=== PATIENT | male | born 1970 | race Caucasian/White ===

== ENCOUNTER 2018-02-27 18:10 | Emergency (ER) | payer OTHER, SELFPAY ==
[2018-02-27] VITALS (7 sets, daily range): BP systolic 107–121; BP diastolic 77–92; PULSE 88–98; RESP 13–18; TEMP 37.1; O2SAT 97–100; BMI 25.9
--- NOTE | 2018-02-27 18:35 | EKG12_ITS ---
Test Reason : CP Blood Pressure : / mmHG Vent. Rate : 085 BPM Atrial Rate : 085 BPM P-R Int : 174 ms QRS Dur : 088 ms QT Int : 358 ms P-R-T Axes : 034 -39 008 degrees QTc Int : 426 ms Normal sinus rhythm Left axis deviation Nonspecific T wave abnormality Abnormal ECG Confirmed by GORDO ROUSE, LISSETT ([id number]), manager editorial MAITE FUNEZ ([id number] on 03/01/2018 9:31:34 AM Referred By: DANNY Confirmed By:LISSETT CARO MD
--- NOTE | 2018-02-27 18:40 | RAD_ITS ---
STUDY: X-RAY CHEST REASON FOR EXAM: Male, 47 years old. Chest pain TECHNIQUE: Single AP portable view of the chest. COMPARISON: None. FINDINGS: The lungs are clear and expanded. There is no demonstrated pleural abnormality. Normal size heart. Normal mediastinum and miguel. Normal visualized pulmonary arteries. Normal visualized aortic arch and descending thoracic aorta. Normal visualized thoracic spine. Normal visualized ribs, clavicles, and shoulders. There is no demonstrated abnormality of the visualized soft tissue structures of the upper abdomen. RAD/Chest 1 View (Portable) IMPRESSION: Normal x-ray examination of the chest. Electronically Signed: Chris Whiting MD at 18:56 EDT , Service support ,
[2018-02-27 18:44] LABS: Absolute Lymphocyte Count 1.69 X10^3/ul (0.83-4.51); Absolute Neutrophil Count 2.5 X10^3/uL (2.0-7.7); Basophil# 0.01 X10^3/uL; Basophil% 0.2 % (0-1); Eosinophil# 0.09 X10^3/uL; Eosinophils% 1.8 % (0-5); Hematocrit 45.6 % (40-54); Hemoglobin 15.2 g/dl (13.0-16.5); Lymphocyte # 1.69 X10^3/ul (4.0); Lymphocyte % 34.7 % (19-41); Mean Corp Hgb Conc 33.3 g/gl (32-36); Mean Corpuscular Hgb 29.9 pg (27.0-32.0); Mean Corpuscular Volume 89.6 fL (80-94); Mean Platelet Vol. 9.5 fl (6.2-12.0); Monocyte# 0.56 X10^3/uL; Monocyte% 11.5 % (0-10); Neutrophil # 2.51 X10^3/uL (2.7-7.7); Neutrophil % 51.6 % (47-70); Platelet Count 226 K/mm3 (150-450); RBC Distribution Width CV 13.1 % (11.6-14.6); RBC Distribution Width SD 42.6 fl (35.1-43.9); Red Blood Count 5.09 M/mm3 (4.6-6.2); White Blood Count 4.9 K/mm3 (4.4-11.0)
[2018-02-27 18:45] LABS: POSITIVE COUNT NO; POSITIVE DIFFERENTIAL NO; POSITIVE MORPHOLOGY NO
[2018-02-27 18:57] LABS: Anion Gap 4 (5-15); BUN 7 mg/dL (7-18); BUN/Creat Ratio 8.4 RATIO (10-20); Chloride 105 mmol/L (98-107); Creatinine, Serum 0.83 mg/dL (0.70-1.30); EST Glomerular Filtration Rate 105 mL/min (>60); Est Glom Filt Rate - Afr Amer 127 mL/min (>60); Estimated Creatinine Clearance 120.76 ml/min; Glucose 91 mg/dL (74-106); Potassium 3.6 mmol/L (3.5-5.1); Sodium Level 140 mmol/L (136-145)
[2018-02-27] MEDS: Aspirin 81 MG TAB.CHEW 324 MG PO (19:02)
--- NOTE | 2018-02-27 20:56 | ED.RN ---
DR. ABREU AT BEDSIDE.
--- NOTE | 2018-02-27 21:00 | ED.DCSUM_ITS ---
- ER Visit Summary Date of Service: 02/27/18 Chief Complaint: Chest pain History of Present Illness: The patient is a 47 M who presents with chest pain that has been waxing and waning over the past 5 days. Patient states the pain is over the left side of his chest and into his back. Patient describes the pain as sharp. Patient states nothing makes it worse. Patient states the pain improved after his massaged his upper back. Patient admits to some nausea but denies any vomiting. Patient admits to some mild lightheadedness. Patient also admits to some palpitations. Patient states the pain occasionally will be down his left arm. Patient has a family history of a brother with coronary artery disease. Patient has a past medical history of CHF. Patient denies any recent travel or recent surgery. Patient denies any history of DVT or cancer. Physical Examination: Vital signs are stable. Patient is afebrile. Patient is in no acute distress. Oral mucosa is pink and moist. Neck is supple. Trachea is midline. There is no JVD noted. Heart was regular rate and rhythm. Lungs are clear and equal bilateral. Abdomen is soft and nontender. Bowel sounds are normal. Cranial nerves II through XII are intact. There are no focal motor or sensory deficits noted. The remaining physical exam is within normal limits. Test Results: EKG showed normal sinus rhythm with a rate of 85. There are nonspecific ST-T wave changes noted. There are no acute changes noted. Chest x -ray was obtained and did not show any acute cardiopulmonary process. CBC, basic metabolic profile, troponin were obtained and were within normal limits. Emergency Department Course and Treatment: Patient was given aspirin here. Patient felt better on reevaluation. Patient has a HEART score of 3 and a PAZ score of 0. Patient was advised that this is low risk for acute cardiac event. Patient was instructed to follow-up with his primary care physician in 7-10 days. Patient and family understood and were agreeable with the plan. All questions were answered. Disposition: Discharged home Impression: Chest pain of uncertain etiology This note was generated with [employer] software. It may contain incorrect words, spelling, and punctuation that were not noted in review of the chart prior to signing ED Disposition - Plan for ED Patient: Disposition: Home or Assisted Living Chief Complaint: Chest Pain Diagnosis: Chest pain of uncertain etiology Instructions: ED Chest Pain Atypical Unkn Cause Referrals: Rashaun Warner DO [Primary Care Provider] -
--- NOTE | 2018-02-27 21:14 | ED.RN ---
IV DC'ED, CATHETER INTACT, SMALL GAUZE DRESSING PLACED. DISCHARGE INSTRUCTIONS GIVEN TO AND REVIEWED WITH PATIENT. PATIENT AND SPOUSE DENIES QUESTIONS OR CONCERNS AND VOICES UNDERSTANDING OF DISCHARGE INSTRUCTIONS. PT AMBULATES OUT OF ROOM WITHOUT DIFFICULTY.
== END 2018-02-27 21:16 | disposition home or self-care (01) ==
PROVIDERS: Emergency Provider Emergency Medicine; Family Provider Family Medicine; PCP Family Medicine
DX: R07.9 Chest pain, unspecified (principal); I50.9 Heart failure, unspecified; F32.9 Major depressive disorder, single episode, unspecified; Z79.899 Other long term (current) drug therapy
CPT/HCPCS: 71045; 80048; 84484; 85025; 93005; 99285; A4216

== ENCOUNTER → 2018-11-15 | Outpatient (CLI) | payer SELFPAY ==
[2018-10-26 09:29] VITALS: BMI 25.4
--- NOTE | 2018-11-15 07:41 | ECHOD_ITS ---
Reason For Study: DYSPNEA/SOB Procedure This was a 2D Doppler, Color Flow transthoracic echocardiogram. Myocardial strain analysis was performed in this exam to aid in the assessment of cardiac function. Exam performed in department. Left Ventricle Normal LV size. The estimated ejection fraction is 35 %. Stage 2 diastolic dysfunction. There is moderate global hypokinesis of the left ventricle. Right Ventricle Normal RV size. Normal systolic function. Atria The left atrium is moderately enlarged. The right atrium is mildly enlarged. Mitral Valve Normal mitral valve. Mild (1+) eccentric mitral valve insufficiency. Tricuspid Valve Normal tricuspid valve. Mild (1+) tricuspid valve insufficiency. Pulmonary artery systolic pressure is 26 mmHg. Aortic Valve Trisinus/trileaflet aortic valve. Pulmonic Valve Normal pulmonic valve. Mild (1+) pulmonic valve insufficiency. Great Vessels Normal aortic root. The pulmonary artery is normal size. Normal inferior vena cava. Pericardium/Pleural No pericardial effusion. MMode/2D Measurements & Calculations LVIDd: 5.0 cm IVSd: 1.2 cm Ao root diam: 3.8 cm LVIDs: 4.3 cm LVPWd: 1.2 cm RVDd: 3.6 cm FS: 13.9 % LAV(MOD-bp): 96.6 ml LA A4 area: 27.7 cm2 LA dimension(2D): 4.3 cm LAV(MOD-bp) Indexed: 46.5 ml/m2 LAV(MOD-sp2): 84.5 ml LAV(MOD-sp4): 99.7 ml RA A4 area: 22.8 cm2 Time Measurements MV dec time: 0.21 sec Doppler Measurements & Calculations MV E max juve: 75.8 cm/sec Lat Peak E' Juve: 11.6 cm/sec Med Peak E' Juve: 8.7 cm/sec MV A max juve: 60.2 cm/sec E/E' lat: 6.6 E/E' med: 8.7 MV E/A: 1.3 Ao V2 max: 94.3 cm/sec LV V1 max: 69.1 cm/sec PA V2 max: 71.1 cm/sec Ao max P.6 mmHg LV V1 max P.9 mmHg PI end-d juve: 113.8 cm/sec TR max juve: 234.5 cm/sec TR max P.0 mmHg Interpretation Summary Normal LV size. The estimated ejection fraction is 35 %. There is moderate global hypokinesis of the left ventricle. Stage 2 diastolic dysfunction. Mild (1+) eccentric mitral valve insufficiency. The global longitudinal strain = -12.6% (abnormal). Compared to prior study, there is no significant change. Ordering Physician: Lavell Banegas Referring Physician: ELISABETH KANG Performed By: Jacob, Mckayla, RDCS, RVT
== END | disposition home or self-care (01) ==
PROVIDERS: Family Provider Family Medicine; PCP Family Medicine; Referring Provider Internal Medicine Cardiovascular Disease; Visit Provider Internal Medicine Cardiovascular Disease
DX: I42.8 Other cardiomyopathies (principal)
CPT/HCPCS: 93306

== ENCOUNTER 2019-01-08 11:22 | Outpatient (RCR) | payer OTHER, SELFPAY ==
[2018-10-26 09:29] VITALS: BMI 25.4
--- NOTE | 2019-01-08 12:43 | HP.PTEVAL_ITS ---
Patient's Visit Information CARLOS ENRIQUE GAVIN is a 48 year old M referred to Physical Therapy by IVETTE SAWANT with a diagnosis of PROXIMAL MUSCLE WEAKNESS. Date of Evaluation: 01/08/19 Physical Therapist: Mg Conrad, PT, Cert MDT, [facility] - Visit Plan Duration: 4 Weeks Plan: PT INTERVENTIONS INCLUDE STRENGTHENING UE/LE FOR HEP,ENDURANCE PROGRAM,FLEXABLITY PROGRAM - Subjective Findings: This 48 y/o male presents to physical therapy with proximal muscle weakness . Patient c/o weakness and pain in arrms and legs. Patient seen family did blood work possibel AGS . Pateint believes symptoms are worsening . Patient states that standing all day causes weakness and pain in legs. 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 Symtoms worse in the morning ,standind on concrete all day,stairs,squatting,kneeling. Patient has pain along with weakness impairs job demands ,houswork chores and ADL'S. Patient symptoms affects QOL. Patient c/o parathesai/tingling hands. Patient symptoms not affect sleeping. SOCAIL : Srinivasan. VOCATION: Build furniture - Pain Bilateral Lower Extremity Pain Intensity (Out of 10): 4 Pain Intensity Range: 10 Bilateral Hand Pain Intensity (Out of 10): 4 Pain Intensity Range: 10 - Objective POSTURE: mild foward posture. GAIT: reciprocal pattern. NEURO: c/o parathesia/tinging hands ,reflexes C5-6-7 1/3,L4-5,L4-L5 ,L5-S1. BALANCE: good. FLEXABILITY: hams severe tight. BUE :WFL. MMT: BUE grossly biceps 3+/5,triocep 4-/5,wrist flexors/extensors 4-/5,shoulder 3+/5. Quads/hams 4/5,hip abd/flexors 4-/5 ,ankle 4/5 planterflexors 4-/5. SLS: difficulty. STAIRS: alternate with rails - Balance Scores Functional Gait Assessment Score: 25 % Disability: 16.6700 - Goals Goal 1:: Independant with HEP. Goal Time Frame: 4-6 Weeks Goal 2:: Patient to decrease pain grossly by 40% to improve function with ADL'S Goal Time Frame: 4-6 Weeks Goal 3:: Patient to increase strength BUE by 4/5 to improve function and ADL'S Goal Time Frame: 4-6 Weeks Goal 4:: Pateint be able to pefrorm job demands and ADL'S with min difficullty. Goal Time Frame: 4-6 Weeks Goal 5:: Pateint to improve LFES score by 5 -10 points to imporove QOL. Goal Time Frame: 4-6 Weeks - Rehabilitation Potential Physical Therapy Diagnosis: This patient displays with proximal muscle weakness along with pain and functional endurance affects job demnads ,home life with housework tasks. Rehabilitation Potential: Good - Anticipated Interventions Patient/Client Instruction: Educate patient on: Condition, Plan of Care For the Purpose of:: To decrease pain, To increase ROM, To improve muscle performance and motor function, To improve ability to perform ADL's, To increase tolerance to activity/condition/position, To improve ability of physical actions for home/community/work/leisure, To improve health of tissue, To decrease soft tissue restriction, To increase flexibility/ROM, To improve ability to perform tasks related to life management Therapeutic Exercise to Include: Strength training, Endurance training, Postural training, Flexibilty training Comment: BLE/UE For the Purpose of:: To decrease pain, To increase ROM, To improve muscle performance and motor function, To increase tolerance to activity/condition/position, To improve ability of physical actions for home/community/work/leisure, To improve health of tissue, To decrease soft tissue restriction, To increase flexibility/ROM, To improve ability to perform tasks related to life management Thank you for the opportunity to evaluate your patient. For Medicare and Medicare HMO plans, please review the plan of care and approve it. It will need to be FAXED BACK to us at [phone] for Medicare purposes. For Medicare only, by signing this I certify the plan of care. Please let me know if there are questions or concerns regarding this plan of care. Physician Signature: Date:
--- NOTE | 2019-03-22 11:34 | HP.PTDCNRP_ITS ---
HP - Discharge Summary (1) - Patient Information CARLOS ENRIQUE GAVIN was seen in my office for initial evaluation on 01/08/19. The following Plan of Care was established for this patient: Initial Duration: 4 Weeks - Anticipated Interventions Patient/Client Instruction: Educate patient on: Condition, Plan of Care For the Purpose of:: To decrease pain, To increase ROM, To improve muscle performance and motor function, To improve ability to perform ADL's, To increase tolerance to activity/condition/position, To improve ability of physical actions for home/community/work/leisure, To improve health of tissue, To decrease soft tissue restriction, To increase flexibility/ROM, To improve ability to perform tasks related to life management Therapeutic Exercise to Include: Strength training, Endurance training, Postural training, Flexibilty training For the Purpose of:: To decrease pain, To increase ROM, To improve muscle performance and motor function, To increase tolerance to activity/co ndition/position, To improve ability of physical actions for home/community/work/leisure, To improve health of tissue, To decrease soft tissue restriction, To increase flexibility/ROM, To improve ability to perform tasks related to life management This patient was last seen in our office . Pertinent comments regarding their Physical therapy will appear below: Patient seen for PT for Intial Evaluation for HEP. At this point I will be discontinuing this patient from physical therapy. I would be happy to see this patient again in the future if found appropriate by the physician. Thank you! Mg Conrad, PT, Cert MDT, OCS
== END 2019-01-08 19:00 | disposition home or self-care (01) ==
LOC: PT 11:22
PROVIDERS: Family Provider Family Medicine; PCP Family Medicine
DX: M62.81 Muscle weakness (generalized) (principal)
CPT/HCPCS: 97110; 97162

== ENCOUNTER → 2019-11-13 07:06 | Outpatient (CLI) | payer OTHER, SELFPAY ==
[2019-10-15 09:31] VITALS: BMI 26.6
[2019-11-13 09:23] LABS: Anion Gap 6 (5-15); BUN 8 mg/dL (7-18); BUN/Creat Ratio 10.9 RATIO (10-20); Calcium,Total 9.2 mg/dL (8.5-10.1); Chloride 106 mmol/L (98-107); Creatinine, Serum 0.74 mg/dL (0.70-1.30); EST Glomerular Filtration Rate 120 mL/min (>60); Est Glom Filt Rate - Afr Amer 145 mL/min (>60); Glucose 90 mg/dL (74-106); Magnesium 2.3 mg/dL (1.6-2.6); Potassium 3.5 mmol/L (3.5-5.1); Sodium Level 142 mmol/L (136-145); T4 Total, Thyroxin 9.5 ug/dL (4.5-12.1)
== END ==
PROVIDERS: PCP Family Medicine; Referring Provider Nurse Practitioner Family; Visit Provider Nurse Practitioner Family
DX: I50.22 Chronic systolic (congestive) heart failure (principal); I42.8 Other cardiomyopathies
CPT/HCPCS: 36415; 80048; 83735; 84436; 84443

== ENCOUNTER → 2019-12-13 13:13 | Outpatient (CLI) | payer OTHER, SELFPAY ==
[2019-10-15 09:31] VITALS: BMI 26.6
--- NOTE | 2019-12-13 13:29 | RAD_ITS ---
STUDY: X-RAY CHEST REASON FOR EXAM: Male, 49 years old. SOB AND INCREASED HEART RATE FOR 2 WEEKS TECHNIQUE: PA and lateral views of the chest. COMPARISON: February 27, 2018 FINDINGS: The lungs are hyperinflated. There is no new focal consolidation. Normal size heart. Normal mediastinum and miguel. Normal visualized pulmonary arteries. Normal visualized aortic arch and descending thoracic aorta. Normal visualized thoracic spine. Normal visualized ribs, clavicles, and shoulders. There is no demonstrated abnormality of the visualized soft tissue structures of the upper abdomen. RAD/Chest PA and Lateral IMPRESSION: Hyperinflated lungs. Electronically Signed: Ning Urrutia MD at 16:59 EDT Tel , Service support ,
[2019-12-13 13:47] LABS: Absolute Lymphocyte Count 1.72 X10^3/uL (0.83-4.51); Absolute Neutrophil Count 2.1 X10^3/uL (2.0-7.7); Basophil# 0.01 X10^3/uL; Basophil% 0.2 % (0-1); Eosinophil# 0.05 X10^3/uL; Eosinophils% 1.2 % (0-5); Hematocrit 40.9 % (40-54); Hemoglobin 13.5 g/dL (13.0-16.5); Lymphocyte # 1.72 X10^3/ul (4.0); Lymphocyte % 40.3 % (19-41); Mean Corpuscular Volume 90.9 fL (80-94); Mean Platelet Vol. 9.2 fl (6.2-12.0); Monocyte# 0.44 X10^3/uL; Monocyte% 10.3 % (0-10); NRBC Flagged by Analyzer 0 % (0-5); Neutrophil # 2.05 X10^3/uL (2.7-7.7); Platelet Count 197 K/mm3 (150-450); RBC Distribution Width CV 13.3 % (11.6-14.6); RBC Distribution Width SD 43.3 fl (35.1-43.9); White Blood Count 4.3 K/mm3 (4.4-11.0)
[2019-12-13 14:34] LABS: BNP,B-Type NATRIURETIC PEPTIDE 101.6 pg/mL (0-100)
[2019-12-13 14:36] LABS: Anion Gap 5 (5-15); BUN 7 mg/dL (7-18); BUN/Creat Ratio 8.1 RATIO (10-20); Calcium,Total 8.4 mg/dL (8.5-10.1); Chloride 110 mmol/L (98-107); Creatinine, Serum 0.87 mg/dL (0.70-1.30); EST Glomerular Filtration Rate 100 mL/min (>60); Est Glom Filt Rate - Afr Amer 120 mL/min (>60); Glucose 108 mg/dL (74-106); Potassium 3.7 mmol/L (3.5-5.1); Sodium Level 142 mmol/L (136-145)
== END ==
PROVIDERS: PCP Family Medicine; Referring Provider Nurse Practitioner Family; Visit Provider Nurse Practitioner Family
DX: I50.22 Chronic systolic (congestive) heart failure (principal); I42.8 Other cardiomyopathies; R06.00 Dyspnea, unspecified
CPT/HCPCS: 36415; 71046; 80048; 83880; 85025

== ENCOUNTER → 2020-05-21 06:02 | Outpatient (CLI) | payer SELFPAY, OTHER ==
[2020-05-15 16:05] VITALS: BMI 25.6
--- NOTE | 2020-05-23 11:37 | STRESSREP_ITS ---
Stress Test Report Date: 05/21/2020 Procedure: Pharmacologic stress nuclear imaging study Indications: [Chest pain] Consent: Per the patient Procedure: The patient underwent pharmacologic (Regadenoson) evaluation with a peak heart rate of 110 beats per minute (64%predicted maximal heart rate) and a peak blood pressure of 104/78 mmHg. The baseline ECG demonstrated normal sinus rhythm. EKG during lexiscan infusion revealed no significant ischemic changes. EKG post infusion revealed no significant ischemic changes [There were no cardiac dysrhythmias pretest, during pharmacologic infusion, or recovery]. [There was no complaint of chest discomfort during pharmacologic infusion or recovery]. The examination was discontinued secondary to completion of protocol. Impression: 1. Lexiscan stress test test is negative for Lexiscan infusion induced EKG changes of ischemia. 2. Lexiscan stress test test is negative for Lexiscan infusion induced chest pain. 3. Results of the nuclear portion of the test is as below Myocardial perfusion imaging study: Technique: The patient was injected with 10.6 millicuries of technetium 99m Cardiolite and subsequently rest SPECT Cardiolite nuclear imaging was obtained in the horizontal long, vertical long, and short axis views. The patient underwent pharmacologic (Regadenoson) evaluation. Please see above for details. The patient was injected with 33.3 millicuries of technetium 99m Cardiolite and subsequently stress SPECT Cardiolite nuclear imaging was obtained in the horizontal long, vertical long, and short axis views. A gated Cardiolite study at peak stress was obtained. Interpretation: Rest and stress SPECT Cardiolite nuclear imaging status post realignment, normalization, and attenuation correction demonstrate mild to moderate fixed apical defect. There are no significant reversible defects suggestive of ischemia. Gated images reveal apical and septal hypokinesis. The reported LVEF is 43%. Impression: 1. There is no evidence of significant ischemia. 2. Estimated ejection fraction is 43%. This note was generated with [employer] software. It may contain incorrect words, spelling, and punctuation that were not noted in checking the note before signing.
== END ==
PROVIDERS: PCP Family Medicine; Referring Provider Nurse Practitioner Family; Visit Provider Nurse Practitioner Family
DX: I47.2 Ventricular tachycardia (principal); R06.02 Shortness of breath; R00.2 Palpitations; I50.22 Chronic systolic (congestive) heart failure; I42.8 Other cardiomyopathies; R07.9 Chest pain, unspecified
CPT/HCPCS: 78452; 93017; A9500; A4216; J2785

== ENCOUNTER 2022-12-17 10:08 | Emergency (ER) | payer OTHER, SELFPAY ==
[2022-12-17 10:09] VITALS: BP 106/75; PULSE 99; RESP 14; TEMP 36.4; O2SAT 98; BMI 25.8
--- NOTE | 2022-12-17 10:52 | EX.ED.DYSGE1 ---
HPI History of Present Illness Chief Complaint: Abd Pain Narrative Narrative: 52-year-old male presenting with abdominal pain. He states that its in the suprapubic region. He states at times it is on the left side. He denies diarrhea or constipation. He does not have dysuria, but does state after he voids the pain is improved. It hurts when he walks and moves and when he sits still the pain is better. It does not radiate except for slightly to the left lower quadrant. He has not had a fever. No nausea or vomiting. He does report that eating food makes the pain worse. [facility] Medical History Anxiety and depression Chronic combined systolic and diastolic CHF (congestive heart failure) Non-ischemic cardiomyopathy Paroxysmal ventricular tachycardia Home Medications acetaminophen 650 mg tablet,extended release (Tylenol 8 Hour) 650 mg PO Q8H PRN fever or pain #30 tabs 12/17/22 [Rx Last Taken Unknown] ciprofloxacin HCl 500 mg tablet 500 mg PO BID #20 TABLETS 12/17/22 [Rx Last Taken Unknown] ibuprofen 600 mg tablet 600 mg PO Q8H PRN fever or pain #30 TABLETS 12/17/22 [Rx Last Taken Unknown] metronidazole 500 mg tablet 500 mg PO Q8H 10 days #30 tabs 12/17/22 [Rx Last Taken Unknown] ondansetron 4 mg disintegrating tablet 4 mg PO Q8H PRN PRN Nausea #20 tabs 12/17/22 [Rx Last Taken Unknown] Allergy/AdvReac Type Severity Reaction Status Date / Time Penicillins [PCN] Allergy Unknown Verified 09/22/22 09:00 Family History Father CAD (coronary artery disease) Mother CHF (congestive heart failure) Surgical History History of left heart catheterization (11/22/14) Social History Smoking Status: Former smoker alcohol intake: current alcohol intake frequency: holidays/special occasions only substance use type: does not use caffeine: Yes Type: coffee Number of servings: 2 ROS ROS ED Constitutional Constitutional ED: Denies chills, fever(s) or sweats Eyes Eyes: Denies blurry vision or change in vision ENT ENT ED: Denies ear pain or sore throat Cardiovascular Cardiovascular: Denies chest pain, palpitations or racing heartbeat Respiratory/Chest Respiratory/Chest: Denies cough, dyspnea or sputum Gastrointestinal Gastrointestinal: Reports abdominal pain; Denies constipation, diarrhea, nausea or vomiting Genitourinary Genitourinary ED: Denies dysuria, hematuria or urinary frequency Musculoskeletal Musculoskeletal: Denies arthralgias, myalgias or neck pain Integumentary Denies abscess, Abrasions or rash Neurologic Neurologic: Denies headache(s), paresthesias or weakness Psychiatric Psychiatric: Denies anxiety, depression, suicidal ideation or suicidal thoughts Endocrine Endocrinology: Denies polydipsia or polyuria EXAM Physical Exam Const Vital Signs: 12/17/22 10:09 12/17/22 11:12 Temperature 97.6 F L Temperature Source Temporal Pulse Rate 99 93 Respiratory Rate 14 16 Blood Pressure 106/75 127/63 H Blood Pressure Mean 85 84 Pulse Ox 98 98 Oxygen Delivery Method Room Air Room Air Positive well nourished General Appearance ED: NAD HEENT Reports moist mucous membranes Eyes PERRL and EOMs intact bilaterally Chest Wall inspection of chest normal Resp normal respiratory effort and clear to auscultation bilaterally Auscultation: Negative for rales, rhonchi or wheezes Cardio regular rate and regular rhythm GI Palpation: tender LLQ and suprapubic Back/Spine no CVA tenderness Extremity normal to inspection General Extremety ED: Negative for edema or tenderness General Extremity: Negative for edema Neuro oriented x3 and CN's II-XII intact bilaterally Sensorium / Orientation: alert Motor Exam: strength 5/5 throughout and general weakness Psych mental status grossly normal Skin no rashes or lesions noted and no wounds MDM MDM MDM Narrative Medical decision making narrative: Patient presenting with suprapubic pain also radiating a lot slightly to the left. He has not had a fever, nausea, vomiting. No diarrhea or constipation. He states the pain has been constant. He reports the pain is better when he empties his bladder. He denies dysuria. Differential includes UTI, pyelonephritis, diverticulitis, colitis, appendicitis, electrolyte abnormalities, dehydration, anemia. CBC obtained to assess white blood cell count, hemoglobin, platelets. CMP to assess liver function, renal function, electrolytes. Lipase to assess for pancreatitis. Urinalysis to assess for UTI. Patient declines analgesia currently. I will obtain a CT of the abdomen pelvis. CBC and CMP are unremarkable with exception of a potassium of 3.3. Lipase negative. CT of the abdomen pelvis with IV contrast shows acute uncomplicated diverticulitis. Patient penicillin allergic so he started on Cipro and Flagyl. He is given Tylenol, ibuprofen, Zofran as well for home. Return precautions were discussed. Impression: 1. Acute uncomplicated diverticulitis Lab Data Labs: Laboratory Results - last 24 hr 12/17/22 10:20 WBC 8.6 RBC 4.80 Hgb 14.9 Hct 44.3 MCV 92.3 MCH 31.0 MCHC 33.6 RDW Std Deviation 44.3 H RDW Coeff of Dusty 13.0 Plt Count 195 MPV 9.3 Immature Gran % (Auto) 0.300 Neut % (Auto) 75.8 H Lymph % (Auto) 13.8 L Smith % (Auto) 9.2 Eos % (Auto) 0.8 Baso % (Auto) 0.1 Absolute Neuts (auto) 6.5 Absolute Lymphs (auto) 1.19 Nucleated RBC % 0 Sodium 139 Potassium 3.3 L Chloride 105 Carbon Dioxide 29.0 Anion Gap 5 BUN 9 Creatinine 0.82 Estim Creat Clear Calc 115.66 Est GFR (MDRD) Af Amer 127 Est GFR (MDRD) Non-Af 105 BUN/Creatinine Ratio 11.0 Glucose 96 Calcium 8.9 Total Bilirubin 0.60 AST 26 ALT 32 Alkaline Phosphatase 52 Total Protein 7.6 Albumin 3.5 Globulin 4.1 Albumin/Globulin Ratio 0.9 Lipase 25 Radiography Diagnostic Testing: Clinical Impression(s) from Imaging Studies Abdomen/Pelvis CT 12/17/22 10:57 IMPRESSION: Sigmoid diverticulosis with inflammatory changes in the colon and surrounding peritoneal fat in keeping with acute sigmoid diverticulosis. No abscess or free air is seen at this time. Electronically Signed: Govind Rodriguez MD at 11:47 EDT , Discharge Plan Triage Chief Complaint: Abd Pain ED Provider: Yoan Calhoun Dx/Rx/DC Orders Instructions: ED Diverticulitis Prescriptions: New acetaminophen [Tylenol 8 Hour] 650 mg tablet extended release 650 mg PO Q8H PRN (Reason: fever or pain) Qty: 30 0RF ibuprofen 600 mg tablet 600 mg PO Q8H PRN (Reason: fever or pain) Qty: 30 0RF ondansetron 4 mg tablet,disintegrating 4 mg PO Q8H PRN PRN (Reason: Nausea) Qty: 20 0RF ciprofloxacin HCl 500 mg tablet 500 mg PO BID Qty: 20 0RF metronidazole 500 mg tablet 500 mg PO Q8H 10 Days Qty: 30 0RF Primary Care Provider: Rashaun Warner Referrals: Rashaun Warner DO [Primary Care Provider] - Disposition Disposition: Home, Self Care Discharge Date/Time: 12/17/22 12:08
--- NOTE | 2022-12-17 10:57 | CT_ITS ---
STUDY: CT ABDOMEN AND PELVIS WITH CONTRAST REASON FOR EXAM: Male, 52 years old. liq abdominal pain RADIATION DOSAGE (If Supplied By Facility): CTDIvol = ( 12.56 ) mGy, DLP = ( 598.67 ) mGycm TECHNIQUE: Transaxial images were obtained from the dome of the diaphragm to the symphysis pubis without oral contrast. IV 100mL Isovue-370 was administered. Sagittal and coronal images were reconstructed. Individualized dose optimization techniques were used for this CT. COMPARISON: None. FINDINGS: The visualized lung bases are unremarkable. The visualized portions of the heart are within normal limits. Normal liver. Normal gallbladder and extrahepatic biliary system. Normal spleen. Normal pancreas. Normal bilateral adrenal glands. Normal right kidney. Normal left kidney. Normal visualized stomach. Normal small intestine. There is diverticulosis, with thickening of the colon wall, and pericolonic inflammation changes consistent with acute diverticulitis. The appendix is visualized and appears normal. Normal abdominal aorta. Normal inferior vena cava. Normal retroperitoneum. Normal urinary bladder. Normal abdominal wall. Normal osseous structures. CT/Abdomen/Pelvis W IV Cont ONLY IMPRESSION: Sigmoid diverticulosis with inflammatory changes in the colon and surrounding peritoneal fat in keeping with acute sigmoid diverticulosis. No abscess or free air is seen at this time. Electronically Signed: Govind Rodriguez MD at 11:47 EDT ,
[2022-12-17 10:58] LABS: Absolute Lymphocyte Count 1.19 X10^3/uL (0.83-4.51); Absolute Neutrophil Count 6.5 X10^3/uL (2.0-7.7); Basophil# 0.01 X10^3/uL; Basophil% 0.1 % (0-1); Eosinophil# 0.07 X10^3/uL; Eosinophils% 0.8 % (0-5); Hematocrit 44.3 % (40-54); Hemoglobin 14.9 g/dL (13.0-16.5); Lymphocyte # 1.19 X10^3/ul (0.83-4.51); Lymphocyte % 13.8 % (19-41); Mean Corp Hgb Conc 33.6 g/dL (32-36); Mean Corpuscular Volume 92.3 fL (80-94); Mean Platelet Vol. 9.3 fl (6.2-12.0); Monocyte# 0.79 X10^3/uL; Monocyte% 9.2 % (0-10); NRBC Flagged by Analyzer 0 % (0-5); Neutrophil # 6.51 X10^3/uL (2.7-7.7); Neutrophil % 75.8 % (47-70); Platelet Count 195 K/mm3 (150-450); RBC Distribution Width SD 44.3 fl (35.1-43.9); White Blood Count 8.6 K/mm3 (4.4-11.0)
[2022-12-17 11:12] VITALS: BP 127/63; PULSE 93; RESP 16; O2SAT 98
[2022-12-17] MEDS: Contrast Allergy Safety Check IV (11:16)
[2022-12-17 11:20] LABS: ALB/GLOB Ratio 0.9 RATIO (0.9-2.4); AST(SGOT) 26 U/L (15-37); Alanine Aminotransfer ALT/SGPT 32 U/L (16-61); Albumin, Serum 3.5 g/dL (3.2-5.0); Alkaline Phosphatase 52 U/L (45-117); Anion Gap 5 (5-15); BUN 9 mg/dL (7-18); Calcium,Total 8.9 mg/dL (8.5-10.1); Chloride 105 mmol/L (98-107); Creatinine, Serum 0.82 mg/dL (0.70-1.30); EST Glomerular Filtration Rate 105 mL/min (>60); Est Glom Filt Rate - Afr Amer 127 mL/min (>60); Estimated Creatinine Clearance 115.66 ml/min; Globulin 4.1 g/dL (2.2-4.2); Glucose 96 mg/dL (74-106); Lipase 25 U/L (13-75); Potassium 3.3 mmol/L (3.5-5.1); Protein, Total 7.6 g/dL (6.4-8.2); Sodium Level 139 mmol/L (136-145)
[2022-12-17] MEDS: metroNIDAZOLE 500 MG Tablet PO (12:25)
[2022-12-17] MEDS: Ciprofloxacin 500 MG Tablet PO (12:25)
== END 2022-12-17 12:48 | disposition home or self-care (01) ==
PROVIDERS: Emergency Provider Student in an Organized Health Care Education/Training Program; PCP Family Medicine; Visit Provider Student in an Organized Health Care Education/Training Program
DX: K57.92 Diverticulitis of intestine, part unspecified, without perforation or abscess without bleeding (principal); I50.42 Chronic combined systolic (congestive) and diastolic (congestive) heart failure; Z87.891 Personal history of nicotine dependence
CPT/HCPCS: 74177; 80053; 83690; 85025; 99282; Q9967; A4216

== ENCOUNTER 2024-08-02 22:27 | Emergency (ER) | payer SELFPAY ==
[2024-08-02 22:27] VITALS: BP 117/95; PULSE 125; RESP 23; TEMP 37.3; O2SAT 96; BMI 25.2
--- NOTE | 2024-08-02 22:54 | EKG12_ITS ---
Test Reason : SOB Blood Pressure : */* mmHG Vent. Rate : 116 BPM Atrial Rate : 116 BPM P-R Int : 186 ms QRS Dur : 92 ms QT Int : 314 ms P-R-T Axes : 37 -51 86 degrees QTcB Int : 436 ms Sinus tachycardia Possible Left atrial enlargement Left anterior fascicular block Nonspecific T wave abnormality Abnormal ECG Confirmed by Kedar Potts ([id number]), food expeditor THO JANG ([id number]) on 08/06/2024 10:41:47 AM Referred By: Dylan Lyn Confirmed By: Kedar Potts
--- NOTE | 2024-08-02 23:07 | RAD_ITS ---
PROCEDURE: CHEST PA AND LATERAL REASON FOR EXAM: Dyspnea TECHNIQUE: Frontal and lateral views of the chest. COMPARISON: 12/13/2019 FINDINGS: Patchy ill-defined opacities now seen at the right base which may represent developing infiltrate. The lungs otherwise appear clear. No pleural effusion. The cardiac silhouette appears upper limits for size. Visualized osseous structures appear within limits. RAD/Chest PA and Lateral IMPRESSION: Patchy ill-defined opacities now seen at the right base which may represent dev eloping infiltrate. The lungs otherwise appear clear. No pleural effusion. Reading Location: [id number]
[2024-08-02 23:10] LABS: Absolute Lymphocyte Count 1.69 X10^3/uL (0.83-4.51); Absolute Neutrophil Count 3.4 X10^3/uL (2.0-7.7); Basophil# 0.01 X10^3/uL; Basophil% 0.2 % (0-1); Eosinophil# 0.07 X10^3/uL; Eosinophils% 1.2 % (0-5); Hematocrit 39.3 % (40-54); Hemoglobin 13.2 g/dL (13.0-16.5); Lymphocyte # 1.69 X10^3/ul (0.83-4.51); Lymphocyte % 30.1 % (19-41); Mean Corp Hgb Conc 33.6 g/dL (32-36); Mean Corpuscular Hgb 30.9 pg (27.0-32.0); Mean Platelet Vol. 10.3 fl (6.2-12.0); Monocyte# 0.39 X10^3/uL; NRBC Flagged by Analyzer 0 % (0-5); Neutrophil # 3.44 X10^3/uL (2.7-7.7); Neutrophil % 61.3 % (47-70); Platelet Count 199 K/mm3 (150-450); RBC Distribution Width SD 42.9 fl (35.1-43.9); Red Blood Count 4.27 M/mm3 (4.6-6.2); White Blood Count 5.6 K/mm3 (4.4-11.0)
--- NOTE | 2024-08-02 23:22 | EX.ED.DYSGE1 ---
HPI History of Present Illness Chief Complaint: Shortness of Breath Informant: patient and spouse/S.O. Narrative Narrative: Patient is a 53-year-old male with past medical history of nonischemic cardiomyopathy and can heart failure. He states that over the past few weeks he has had shortness of breath with exertion. He states there is no chest pain or diaphoresis and that the shortness of breath will resolve while at rest. He states however he has been having to sleep in the living room in a recliner as he has recurrent coughing while lying in the bed. He feels like symptoms have been worsening and secondary to this comes in for evaluation [facility] Medical History (Updated 08/03/24 @ 03:[address] Dylan Lyn, DO) Chronic combined systolic and diastolic CHF (congestive heart failure) Paroxysmal ventricular tachycardia Anxiety and depression Non-ischemic cardiomyopathy Home Medications ?Medication ?Instructions ?Recorded ?Last Taken ?Type lurasidone 60 mg tablet (Latuda) 60 mg PO DAILY 07/07/23 Unknown History furosemide 40 mg tablet (Lasix) 40 mg PO DAILY 30 days #30 tabs 08/03/24 Unknown Rx lisinopril 5 mg tablet 5 mg PO DAILY 30 days #30 tabs 08/03/24 Unknown Rx Allergy/AdvReac Type Severity Reaction Status Date / Time Penicillins (PCN) Allergy Unknown Verified 08/02/24 22:30 Family History Father CAD (coronary artery disease) Mother CHF (congestive heart failure) Surgical History History of left heart catheterization (11/22/14) Social History Smoking Status: Current every day smoker tobacco type: cigarettes alcohol intake: current alcohol intake frequency: holidays/special occasions only substance use type: does not use caffeine: Yes Type: coffee Number of servings: 2 ROS ROS ED Constitutional Constitutional ED: Denies chills or fever(s) ENT ENT ED: Denies rhinorrhea or sore throat Cardiovascular Cardiovascular: Denies chest pain, palpitations or racing heartbeat Respiratory/Chest Respiratory/Chest: Reports cough, dyspnea and dyspnea on exertion Gastrointestinal Gastrointestinal: Denies abdominal pain, diarrhea, nausea or vomiting Genitourinary Genitourinary ED: Denies dysuria Musculoskeletal Musculoskeletal: Denies back pain Integumentary Denies rash Neurologic Neurologic: Denies headache(s) Hematologic/Lymphatic Hematologic/Lymphatic: Denies easy bleeding or easy bruising Allergic/Immunologic Allergic/Immunologic ED: Denies mouth swelling or tongue swelling EXAM Physical Exam Const Vital Signs: 08/02/24 22:27 08/02/24 22:49 08/02/24 23:30 Temperature 99.2 F H Temperature Source Oral Pulse Rate 125 H 116 H Respiratory Rate 23 H 15 Respiratory Effort Normal Blood Pressure 117/95 H 124/63 H Blood Pressure Mean 102 83 Pulse Ox 96 95 Oxygen Delivery Method Room Air Room Air 08/03/24 00:07 08/03/24 01:00 08/03/24 01:31 Temperature 97.9 F Temperature Source Pulse Rate 113 H 69 107 H Respiratory Rate 20 H 18 19 H Respiratory Effort Blood Pressure 110/80 161/97 H 106/90 H Blood Pressure Mean 90 118 95 Pulse Ox 97 96 97 Oxygen Delivery Method Room Air Room Air Positive well nourished and well developed General Appearance ED: well developed; Negative for pallor HEENT Reports moist mucous membranes HEENT Narrative: No tongue or lip swelling no oral lesions no airway edema or compromise Eyes PERRL and EOMs intact bilaterally General Eye ED: Negative for pale conjunctiva or scleral icterus Neck supple and no JVD Chest Wall palpation of chest normal Resp normal respiratory effort Resp Narrative: Breath sounds are diminished throughout with faint rhonchi noted in the bilateral lower lobes No nasal flaring retractions tachypnea or accessory muscle use Cardio regular rhythm Rate: tachycardic and other Other Details: Tachycardic rate with regular rhythm Radial and carotid pulses are equal and symmetric GI normal to inspection, nondistended, normoactive bowel sounds, non-tender, non-distended and no masses Auscultation: normoactive bowel sounds Palpation: soft Extremity normal to inspection Extremity Narrative: No asymmetric edema no pitting edema negative Homans' sign bilaterally Neuro oriented x3, CN's II-XII intact bilaterally and no sensory deficits noted Sensorium / Orientation: alert Motor Exam: strength 5/5 throughout Psych mental status grossly normal Skin no rashes or lesions noted General Skin Exam: Negative for jaundice or pallor MDM MDM MDM Narrative Medical decision making narrative: Patient arrived to the ER tachycardic but otherwise with stable vitals. We did report shortness of breath with exertion there is concern for upper respiratory tract infection such as COVID influenza or RSV versus pneumonia versus pneumothorax versus congestive heart failure versus acute coronary syndrome. The patient had a sinus tachycardia EKG without ischemic findings and his troponin is normal going against ACS. His blood work revealed no signs of acute blood loss anemia or acute kidney injury or clinically significant [place] abnormality. Chest x-ray revealed findings concerning for potential infection such as pneumonia. His D-dimer was elevated indicating potential PE as the cause of his shortness of breath. Therefore a CTA was added which shows changes consistent with interstitial edema which correlates with his grossly elevated proBNP. As he does not have a fever or white count concern for an infection is low and do not feel there is need for antibiotic. He was ambulated and his pulse ox went from 96% on room air down to 93 and as he is not hypoxic there is no need for admission. The case was discussed with certified dental assistant Dr. Potts. He recommends giving IV Lasix now and placing on Lasix and lisinopril for home. However he does agree that without hypoxia or signs of ACS there is no need for further intervention and he can be followed up as an outpatient History & Record Review Discussion w/independent historian: Patient and Significant other Lab Data Attestation: I reviewed the patient's lab results. Labs: Laboratory Results - last 24 hr 08/02/24 22:38 WBC 5.6 RBC 4.27 L Hgb 13.2 Hct 39.3 L MCV 92.0 MCH 30.9 MCHC 33.6 RDW Std Deviation 42.9 RDW Coeff of Dusty 13.0 Plt Count 199 MPV 10.3 Immature Gran % (Auto) 0.200 Neut % (Auto) 61.3 Lymph % (Auto) 30.1 [place] % (Auto) 7.0 Eos % (Auto) 1.2 Baso % (Auto) 0.2 Absolute Neuts (auto) 3.4 Absolute Lymphs (auto) 1.69 Nucleated RBC % 0 PT 14.8 INR 1.1 APTT 31.6 D-Dimer Quant (PE/DVT) 0.65 H* Sodium 136 Potassium 3.8 Chloride Direct 102 Carbon Dioxide 20.5 L Anion Gap 13 BUN 11 Creatinine 0.81 Estim Creat Clear Calc 115.76 Est GFR (MDRD) Non-Af 105 BUN/Creatinine Ratio 13.0 Glucose 102 H Calcium 8.9 Magnesium 2.1 Troponin T High Sens 14 B-Natriuretic Peptide Cancelled NT pro BNP II 6221 H Radiography Diagnostic Testing: Clinical Impression(s) from Imaging Studies Chest X-Ray 08/02/24 23:07 IMPRESSION: Patchy ill-defined opacities now seen at the right base which may represent developing infiltrate. The lungs otherwise appear clear. No pleural effusion. Reading Location: [facility] Chest CTA 08/02/24 23:31 IMPRESSION: No evidence of filling defect to suggest pulmonary embolism. Mild patchy basilar ground-glass opacity and septal thickening most suggestive of interstitial, pulmonary edema. No focal consolidation. Cardiomegaly. One or more dose reduction techniques were used (e.g., Automated exposure control, adjustment of the mA and/or kV according to patient size, use of iterative reconstruction technique). Reading Location: [facility] Chest x-ray as interpreted by the emergency medicine physician reveals hazy opacities in bilateral lower lobes concerning for pulmonary edema versus infiltrate Discharge Plan Triage Chief Complaint: Shortness of Breath ED Provider: Dylan Lyn Dx/Rx/DC Orders Clinical Impression: Congestive heart failure, Non-ischemic cardiomyopathy, Dyspnea on exertion Instructions: ED Heart Failure, Congestive (CHF) Prescriptions: New furosemide [Lasix] 40 mg tablet 40 mg PO DAILY 30 Days Qty: 30 1RF lisinopril 5 mg tablet 5 mg PO DAILY 30 Days Qty: 30 1RF No Action lurasidone [Latuda] 60 mg tablet 60 mg PO DAILY Rx Instructions: must administer with food (at least 350 calories) Primary Care Provider: Christine Trujillo NP Referrals: Kedar Potts MD [Med Staff - Active Staff] - Christine Trujillo NP, [employer] MEMBER-C [Primary Care Provider] - Activity Restrictions/Additional Instructions: Please begin taking the Lasix and lisinopril once daily to help improve your shortness of breath and heart failure symptoms. If you develop lightheadedness or dizziness or passing out then please stop the medication. Follow-up with cardiology for repeat evaluation and return to the ER should you have any further concerns Print Language: Urdu Disposition Disposition: Home, Self Care Discharge Date/Time: 08/03/24 01:48
[2024-08-02 23:28] LABS: D-Dimer Quantitative (DVT/PE) 0.65 FEU/ug/m (0.27-0.49)
[2024-08-02 23:30] VITALS: BP 124/63; PULSE 116; RESP 15; O2SAT 95
--- NOTE | 2024-08-02 23:31 | CT_ITS ---
PROCEDURE: CTA CHEST W/WO CONTRAST REASON FOR EXAM: Dyspnea with elevated D-dimer TECHNIQUE: CTA imaging of the chest with intravenous contrast. Coronal and sagittal and MIP reformatted 3D reconstructions. CONTRAST: 96 cc Isovue 370 COMPARISON: None. FINDINGS: No evidence of filling defect to suggest pulmonary embolism. Thoracic aorta appears within limits. Cardiomegaly. No pericardial effusion. Trace bilateral pleural fluid. The central airways are patent. Mild patchy basilar ground-glass opacity and septal thickening most suggestive of interstitial, pulmonary edema. No focal consolidation. Images of the upper abdomen appear unremarkable. CT/CTA Chest W/WO Contrast IMPRESSION: No evidence of filling defect to suggest pulmonary embolism. Mild patchy basilar ground-glass opacity and septal thickening most suggestive of interstitial, pulmonary edema. No focal consolidation. Cardiomegaly. One or more dose reduction techniques were used (e.g., Automated exposure contr ol, adjustment of the mA and/or kV according to patient size, use of iterative reconstruction technique). Reading Location: [id number]
[2024-08-02 23:49] LABS: Magnesium 2.1 mg/dL (1.5-2.2)
[2024-08-02 23:57] LABS: Anion Gap 13 (5-15); BUN 11 mg/dL (4-19); Calcium 8.9 mg/dL (7.6-11.0); Carbon Dioxide 20.5 mmol/L (22.0-29.0); Chloride 102 mmol/L (96-108); Creatinine, Serum 0.81 mg/dL (0.70-1.20); EST Glomerular Filtration Rate 105 (>60); Estimated Creatinine Clearance 115.76 ml/min; Glucose 102 mg/dL (70-99); Potassium 3.8 mmol/L (3.3-5.1); Sodium Level 136 mmol/L (133-145)
[2024-08-03 00:07] VITALS: BP 110/80; PULSE 113; RESP 20; O2SAT 97
[2024-08-03 00:10] LABS: Pro- Brain NATRIURETIC PEPTIDE 6221 pg/mL (<=900); Troponin T High Sensitivity 14 ng/L (<=22)
[2024-08-03 00:27] LABS: International Normalized Ratio 1.1; Partial Thromboplast Time 31.6 Seconds (24.1-36.2); Prothrombin Time (Protime)PT. 14.8 SECONDS (11.7-14.9)
[2024-08-03 00:57] VITALS: O2SAT 96
[2024-08-03 01:00] VITALS: BP 161/97; PULSE 69; RESP 18; O2SAT 96
[2024-08-03] MEDS: Furosemide 40 MG/4 ML Vial IV (01:25)
[2024-08-03 01:31] VITALS: BP 106/90; PULSE 107; RESP 19; TEMP 36.6; O2SAT 97
== END 2024-08-03 01:48 | disposition home or self-care (01) ==
PROVIDERS: Emergency Provider Emergency Medicine; PCP Nurse Practitioner Family; Referring Provider Emergency Medicine; Visit Provider Emergency Medicine
DX: I50.42 Chronic combined systolic (congestive) and diastolic (congestive) heart failure (principal); I42.8 Other cardiomyopathies; F17.210 Nicotine dependence, cigarettes, uncomplicated; Z82.49 Family history of ischemic heart disease and other diseases of the circulatory system
CPT/HCPCS: 71046; 71275; 80048; 83735; 83880; 84484; 85025; 85379; 85610; 85730; 87631; 93005; 96374; 99284; Q9967; A4216; J1940

== ENCOUNTER → 2024-08-08 | Outpatient (CLI) | payer SELFPAY ==
[2024-08-08 14:24] LABS: Anion Gap 11 (5-15); BUN 14 mg/dL (4-19); BUN/Creat Ratio 13.3 RATIO (10-20); Calcium,Total 9.3 mg/dL (7.6-11.0); Chloride 100 mmol/L (98-108); Creatinine, Serum 1.03 mg/dL (0.70-1.20); EST Glomerular Filtration Rate 87 (>60); Glucose 56 mg/dL (70-99); Potassium 4.5 mmol/L (3.3-5.1); Sodium Level 136 mmol/L (133-145)
== END | disposition home or self-care (01) ==
PROVIDERS: PCP Nurse Practitioner Family; Referring Provider Student in an Organized Health Care Education/Training Program; Visit Provider Student in an Organized Health Care Education/Training Program
DX: I50.42 Chronic combined systolic (congestive) and diastolic (congestive) heart failure (principal)
CPT/HCPCS: 36415; 80048

== ENCOUNTER → 2024-09-05 | Outpatient (CLI) | payer SELFPAY ==
--- NOTE | 2024-09-05 12:16 | ECHOD_ITS ---
Reason For Study Reason For Study: CHF Procedure This was a 2D Doppler, Color Flow transthoracic echocardiogram. Myocardial strain analysis was performed in this exam to aid in the assessment of cardiac function. Exam performed in department. Left Ventricle Normal LV size. The left ventricular ejection fraction is 25 %. There is moderate to severe global hypokinesis of the left ventricle. Right Ventricle Normal RV size. Normal systolic function. Atria The left atrium is moderately enlarged. The right atrium is mildly enlarged. Mitral Valve Normal mitral valve. Mild-Moderate (1-2+) eccentric mitral valve insufficiency. Tricuspid Valve Normal tricuspid valve. Mild to moderate (1-2+) tricuspid valve insufficiency. Pulmonary artery systolic pressure is 30 mmHg. Aortic Valve Trisinus/trileaflet aortic valve. Pulmonic Valve Normal pulmonic valve. Mild (1+) pulmonic valve insufficiency. Great Vessels Normal aortic root. The pulmonary artery is normal size. Inferior vena cava collapse with sniff. Pericardium/Pleural No pericardial effusion. MMode/2D Measurements & Calculations LVIDd: 5.7 cm IVSd: 0.85 cm Ao root diam: 3.3 cm LVIDs: 5.0 cm LVPWd: 1.1 cm RVDd: 3.9 cm FS: 11.6 % LAV(MOD-bp): 89.4 ml LVAd ap4: 38.4 cm2 SV(MOD-sp4): 35.9 ml LAV(MOD-bp) Indexed: 43.9 ml/m2 LVLd ap4: 8.2 cm SI(MOD-sp4): 17.6 ml/m2 LAV(MOD-sp2): 90.2 ml EDV(MOD-sp4): 148.1 ml LAV(MOD-sp4): 84.8 ml EDV(sp4-el): 151.8 ml LVAs ap4: 32.0 cm2 LVLs ap4: 7.5 cm ESV(MOD-sp4): 112.3 ml ESV(sp4-el): 116.4 ml EF(MOD-sp4): 24.2 % EF(sp4-el): 23.4 % SV(sp4-el): 35.5 ml LA A4 area: 26.7 cm2 LA dimension(2D): 5.1 cm RA A4 area: 22.3 cm2 TAPSE: 1.9 cm Time Measurements MV dec time: 0.16 sec Doppler Measurements & Calculations MV E max juve: 74.6 cm/sec Lat Peak E' Juve: 12.8 cm/sec Med Peak E' Juve: 4.9 cm/sec MV A max juve: 28.2 cm/sec E/E' lat: 5.8 E/E' med: 15.3 MV E/A: 2.6 Ao V2 max: 94.1 cm/sec LV V1 max: 77.2 cm/sec PA V2 max: 65.0 cm/sec Ao max P.5 mmHg LV V1 max P.4 mmHg TR max juve: 344.9 cm/sec TR max P.6 mmHg ECHO/Echo Complete Interpretation Summary Normal LV size. The left ventricular ejection fraction is 25 %. There is moderate to severe global hypokinesis of the left ventricle. Compared to previous study, the left ventricular systolic function has worsened .. Ordering Physician: Adam Booker Referring Physician: THO WALSH Performed By: Niyah Lee RDCS
== END | disposition home or self-care (01) ==
LOC: CVS 12:14
PROVIDERS: PCP Nurse Practitioner Family; Referring Provider Student in an Organized Health Care Education/Training Program; Visit Provider Student in an Organized Health Care Education/Training Program
DX: I42.8 Other cardiomyopathies (principal); I50.42 Chronic combined systolic (congestive) and diastolic (congestive) heart failure
CPT/HCPCS: 93306

== ENCOUNTER 2024-09-07 12:47 | Emergency (ER) | payer SELFPAY ==
[2024-09-07 12:47] VITALS: BP 106/79; PULSE 109; PULSE 112; RESP 18; TEMP 36; O2SAT 98; BMI 24.2
--- NOTE | 2024-09-07 13:02 | EKG12_ITS ---
Test Reason : Blood Pressure : */* mmHG Vent. Rate : 111 BPM Atrial Rate : 111 BPM P-R Int : 198 ms QRS Dur : 92 ms QT Int : 418 ms P-R-T Axes : 43 -61 79 degrees QTcB Int : 568 ms Critical Test Result: Long QTc Sinus tachycardia Left anterior fascicular block T wave abnormality, consider lateral ischemia Prolonged QT Abnormal ECG Confirmed by CARLOS ROUSE, JOCELIN ([id number]), editor magazine THO JANG ([id number]) on 09/10/2024 5:52:50 AM Referred By: SAMIRA Confirmed By: JOCELIN GONZALEZ MD
--- NOTE | 2024-09-07 13:03 | EDS_ITS ---
HPI History of Present Illness Chief Complaint: Palpitations Informant: patient Narrative Narrative: 53-year-old [employer] male presenting to the emergency room with vomiting tachycardia and upper back pain. Patient states he was seen in the emergency department maybe 1 month ago where he states he was treated for congestive heart failure. He followed up with cardiology and was placed on metoprolol. It is noted that the patient has a history of paroxysmal ventricular tachycardia and nonischemic cardiomyopathy. On September 05 he had an ejection fraction noted to be 25% with moderate to severe global hypokinesia. This was being read as worsened since his last echocardiogram. Patient's initial symptoms of dyspnea that led him to the emergency department had improved and he was able to resolve his orthopnea. Patient states that now since starting the metoprolol he was having intermittent vomiting but since they increased the metoprolol he has been having daily vomiting. He states that is usually associated about 1 hour after eating. This morning he vomited after breakfast and after lunch. He states when his heart rate increases after vomiting he gets pain in between his shoulder blades. He denies any abdominal pain. He states he typically weighs around 180 pounds (current weight 177 on the bed). [facility] Medical History (Updated 09/07/24 @ 15:[address] Partha Whitman DO) Chronic combined systolic and diastolic CHF (congestive heart failure) Paroxysmal ventricular tachycardia Anxiety and depression Non-ischemic cardiomyopathy Home Medications ?Medication ?Instructions ?Recorded ?Last Taken ?Type lurasidone 60 mg tablet (Latuda) 60 mg PO DAILY Unknown History furosemide 40 mg tablet (Lasix) 40 mg PO DAILY 30 days #30 tabs 08/08/24 Unknown Rx lisinopril 5 mg tablet 5 mg PO DAILY 30 days #30 ta bs 08/08/24 Unknown Rx carvedilol 6.25 mg tablet (Coreg) 6.25 mg PO BID #30 t abs 09/07/24 Unknown Rx ondansetron 4 mg disintegrating 4 mg PO Q6H PRN PRN Na usea #15 tabs 09/07/24 Unknown Rx tablet Allergy/AdvReac Type Severity Reaction Status Date / Time Penicillins (PCN) Allergy Unknown Verified 09/07/24 12:48 Family History Father CAD (coronary artery disease) Mother CHF (congestive heart failure) Surgical History History of left heart catheterization (11/22/14) Social History Smoking Status: Current every day smoker tobacco type: cigarettes alcohol intake: current alcohol intake frequency: holidays/special occasions only substance use type: does not use caffeine: Yes Type: coffee Number of servings: 2 ROS ROS ED Constitutional Constitutional ED: Denies chills, fever(s) or weight loss Eyes Eyes: Denies change in vision or diplopia ENT ENT ED: Denies ear pain, rhinorrhea or sore throat Cardiovascular Cardiovascular: Reports palpitations and racing heartbeat; Denies chest pain or orthopnea Respiratory/Chest Respiratory/Chest: Denies cough, dyspnea or orthopnea Gastrointestinal Gastrointestinal: Reports nausea and vomiting; Denies abdominal pain or diarrhea Genitourinary Genitourinary ED: Denies dysuria, hematuria or urinary frequency Musculoskeletal Musculoskeletal: Reports back pain; Denies arthralgias, myalgias or neck pain Integumentary Denies abscess or rash Neurologic Neurologic: Denies headache(s) or weakness Psychiatric Psychiatric: Denies anxiety, depression, suicidal ideation or suicidal thoughts Endocrine Endocrinology: Denies polydipsia, polyphagia or polyuria Allergic/Immunologic Allergic/Immunologic ED: Denies mouth swelling, tongue swelling or urticaria EXAM Physical Exam Const Vital Signs: 09/07/24 12:47 09/07/24 12:47 09/07/24 13:22 Temperature 96.8 F L Temperature Source Temporal Pulse Rate 109 H 112 H 105 H Respiratory Rate 18 Blood Pressure 106/79 95/65 Blood Pressure Mean 88 75 Pulse Ox 98 Oxygen Delivery Method Room Air 09/07/24 15:00 Temperature Temperature Source Pulse Rate 103 H Respiratory Rate 16 Blood Pressure 91/62 Blood Pressure Mean 71 Pulse Ox 98 Oxygen Delivery Method Room Air Positive well nourished and well developed General Appearance ED: well developed HEENT Reports normocephalic, head/scalp atraumatic and moist mucous membranes Eyes PERRL and EOMs intact bilaterally Neck no lymphadenopathy, supple and no JVD Resp normal respiratory effort and clear to auscultation bilaterally Cardio regular rate, regular rhythm and no murmurs Rate: tachycardic GI normal to inspection, nondistended, normoactive bowel sounds and non-tender Palpation: soft Back/Spine no CVA tenderness and normal ROM Extremity normal to inspection General Extremety ED: Negative for edema General Extremity: Negative for edema Neuro oriented x3 and CN's II-XII intact bilaterally Sensorium / Orientation: alert Motor Exam: strength 5/5 throughout Psych mental status grossly normal Mood & Affect: Negative for depressed or tearful Skin no rashes or lesions noted and no wounds MDM MDM MDM Narrative Medical decision making narrative: Differential diagnosis includes cardiac dysrhythmia electrolyte abnormality dehydration gastroenteritis biliary disease pancreatitis coronary artery disease congestive heart failure pleural effusion pulmonary embolism aortic dissection acute coronary syndrome Basic blood work was obtained essentially negative. However his BNP is 6600. My independent interpretation the chest x-ray is mild cardiomegaly no overt failure. Lipase is 34 normal liver enzymes. Troponin is 13 white count is 5 hemoglobin 14.3 normal electrolytes creatinine is 0.89 urinalysis no overt infection. CTA of the chest is negative for acute findings CT of the abdomen pelvis shows some fluid in the small intestine but no overt obstruction or inflammatory changes are noted. Patient's heart rate has been into the 90s while at rest but usually around 0 100-0110. I reviewed the above findings and the case with cardiology Dr. Banegas. Plan is to switch him to Coreg twice a day from metoprolol. Continue the Lasix. He has an appointment on Tuesday with cardiology. I will also write for some Zofran. At this point I believe the patient can be discharged home. Return if worsening or concerns History & Record Review Discussion w/independent historian: Patient Additional record(s) reviewed:: Prior outpatient record, Prior ED visit and Prior labs Lab Data Attestation: I reviewed the patient's lab results. Labs: Laboratory Results - last 24 hr 09/07/24 09/07/24 13:11 13:42 WBC 5.0 RBC 4.70 Hgb 14.3 Hct 42.9 MCV 91.3 MCH 30.4 MCHC 33.3 RDW Std Deviation 45.4 H RDW Coeff of Dusty 13.7 Plt Count 181 MPV 9.9 Immature Gran % (Auto) 0.200 Neut % (Auto) 63.9 Lymph % (Auto) 23.8 [place] % (Auto) 10.7 H Eos % (Auto) 1.0 Baso % (Auto) 0.4 Absolute Neuts (auto) 3.2 Absolute Lymphs (auto) 1.18 Nucleated RBC % 0 PT 14.4 INR 1.1 APTT 28.7 Sodium 139 Potassium 3.7 Chloride 103 Carbon Dioxide 23.5 Anion Gap 13 BUN 12 Creatinine 0.89 Estim Creat Clear Calc 105.36 Est GFR (MDRD) Non-Af 102 BUN/Creatinine Ratio 13.2 Glucose 110 H Calcium 9.0 Total Bilirubin 0.34 Direct Bilirubin 0.16 AST 30 ALT 20 Alkaline Phosphatase 49 Troponin T High Sens 13 D NT pro BNP II 6657 H Total Protein 7.2 Albumin 4.4 Globulin 2.8 Lipase 34 Urine Color Yellow Urine Clarity Clear Urine pH 6.0 Ur Specific [place] 1.010 Urine Protein Negative Urine Glucose (UA) Normal Urine Ketones Negative Urine Occult Blood 10 H Urine Nitrite Negative Urine Bilirubin Negative Urine Urobilinogen Normal Ur Leukocyte Esterase Negative Urine RBC 0 SEEN Urine WBC 0 SEEN Ur Squamous Epith Cells 0 SEEN Urine Bacteria 0 SEEN Urine Mucus 0 SEEN Radiography Diagnostic Testing: Clinical Impression(s) from Imaging Studies Chest X-Ray 09/07/24 13:25 IMPRESSION: No acute process identified. Reading Location: [facility] Abdomen/Pelvis CT 09/07/24 14:07 IMPRESSION: Fatty infiltration of the liver. Fluid-filled nondilated small bowel loops. Gastroenteritis should be ruled out. Reading Location: [facility]- Chest CTA 09/07/24 14:07 IMPRESSION: No acute abnormality is seen. Reading Location: [facility]-IR-1 EKG Initial EKG: Attestation: I personally reviewed and interpreted this EKG as follows: Comments: Sinus tachycardia ventricular rate of 111 bpm. This appears grossly unchanged from 02 August 2024. Management Discussion w/another healthcare provider: Physical Metallurgist (Dr Banegas) Discharge Plan Triage Chief Complaint: Palpitations ED Provider: Partha Whitman Dx/Rx/DC Orders Clinical Impression: Back pain, Paroxysmal ventricular tachycardia, Non-ischemic cardiomyopathy, Vomiting, Sinus tachycardia Prescriptions: New carvedilol [Coreg] 6.25 mg tablet 6.25 mg PO BID Qty: 30 0RF Rx Instructions: must administer with a meal/food ondansetron 4 mg tablet,disintegrating 4 mg PO Q6H PRN PRN (Reason: Nausea) Qty: 15 0RF Discontinued metoprolol tartrate 25 mg tablet 25 mg PO BID No Action lurasidone [Latuda] 60 mg tablet 60 mg PO DAILY Rx Instructions: must administer with food (at least 350 calories) lisinopril 5 mg tablet 5 mg PO DAILY 30 Days Qty: 30 2RF furosemide [Lasix] 40 mg tablet 40 mg PO DAILY 30 Days Qty: 30 2RF Primary Care Provider: Christine Trujillo NP Referrals: Christine Trujillo NP, CERTIFIED ACTIVITIES DIRECTOR-C [Primary Care Provider] - Activity Restrictions/Additional Instructions: Keep your cardiology appointment on September 10. Discontinue the metoprolol and begin Coreg 6.25 mg twice daily Zofran as needed for nausea vomiting. Print Language: Swedish Disposition Disposition: Home, Self Care
[2024-09-07 13:22] VITALS: BP 95/65; PULSE 105
[2024-09-07 13:22] LABS: Absolute Lymphocyte Count 1.18 X10^3/uL (0.83-4.51); Absolute Neutrophil Count 3.2 X10^3/uL (2.0-7.7); Basophil# 0.02 X10^3/uL; Basophil% 0.4 % (0-1); Eosinophil# 0.05 X10^3/uL; Hematocrit 42.9 % (40-54); Hemoglobin 14.3 g/dL (13.0-16.5); Lymphocyte # 1.18 X10^3/ul (0.83-4.51); Lymphocyte % 23.8 % (19-41); Mean Corp Hgb Conc 33.3 g/dL (32-36); Mean Corpuscular Hgb 30.4 pg (27.0-32.0); Mean Corpuscular Volume 91.3 fL (80-94); Mean Platelet Vol. 9.9 fl (6.2-12.0); Monocyte# 0.53 X10^3/uL; Monocyte% 10.7 % (0-10); NRBC Flagged by Analyzer 0 % (0-5); Neutrophil # 3.16 X10^3/uL (2.7-7.7); Neutrophil % 63.9 % (47-70); Platelet Count 181 K/mm3 (150-450); RBC Distribution Width CV 13.7 % (11.6-14.6); RBC Distribution Width SD 45.4 fl (35.1-43.9)
--- NOTE | 2024-09-07 13:25 | RAD_ITS ---
PROCEDURE: CHEST 1 VIEW (PORTABLE) 09/07/2024 REASON FOR EXAM: Congestive heart failure TECHNIQUE: Frontal view of the chest. COMPARISON: Chest radiograph of 08/02/2019 FINDINGS: Hardware: None. Heart: Mild cardiac enlargement. Lungs: No acute consolidating airspace disease. No evidence of pulmonary edema or pulmonary venous congestion. Bones: Unremarkable Other: RAD/Chest 1 View (Portable) IMPRESSION: No acute process identified. Reading Location: [facility]
[2024-09-07 13:32] LABS: International Normalized Ratio 1.1; Prothrombin Time (Protime)PT. 14.4 SECONDS (11.7-14.9)
[2024-09-07 13:33] LABS: Partial Thromboplast Time 28.7 Seconds (24.1-36.2)
[2024-09-07 13:46] LABS: Bacteria 0 SEEN /hpf (None Seen); Mucous, Urine 0 SEEN /hpf (<or=2+); Red Blood Cells-Urine 0 SEEN /hpf (0-5); Squamous Epithelial Cells - UA 0 SEEN /hpf (0-5); White Blood Cells 0 SEEN /hpf (0-5)
[2024-09-07 14:03] LABS: AST(SGOT) 30 U/L (<=37); Alanine Aminotransfer ALT/SGPT 20 U/L (<=46); Albumin, Serum 4.4 g/dL (3.5-5.0); Alkaline Phosphatase 49 U/L (40-129); Anion Gap 13 (5-15); BUN 12 mg/dL (4-19); BUN/Creat Ratio 13.2 RATIO (10-20); Bilirubin, Direct 0.16 mg/dL (0.00-0.30); Carbon Dioxide 23.5 mmol/L (21.0-32.0); Chloride 103 mmol/L (98-108); Creatinine, Serum 0.89 mg/dL (0.70-1.20); EST Glomerular Filtration Rate 102 (>60); Estimated Creatinine Clearance 105.36 ml/min (50-250); Globulin 2.8 g/dL (2.2-4.2); Glucose 110 mg/dL (70-99); Lipase 34 U/L (13-75); Potassium 3.7 mmol/L (3.3-5.1); Pro- Brain NATRIURETIC PEPTIDE 6657 pg/mL (<=900); Protein, Total 7.2 g/dL (5.9-8.4); Sodium Level 139 mmol/L (133-145); Total Bilirubin 0.34 mg/dL (0.00-1.30); Troponin T High Sensitivity 13 ng/L (<=22)
[2024-09-07 14:05] LABS: Color, Urine Yellow (Yellow); Glucose, Dipstick Normal (Normal); Ketone-Dipstick Negative (Negative); Leukocyte Esterase-Dipstick Negative /ul (Negative); Nitrite-Dipstick Negative (Negative); Occult Blood-Urine 10 /ul (Negative); Protein-Dipstick Negative (Negative); Urine Bilirubin Dipstick Negative (Negative); Urine Clarity Clear (Clear); Urine Urobilinogen Normal (Normal)
--- NOTE | 2024-09-07 14:07 | CT_ITS ---
PROCEDURE: ABDOMEN/PELVIS W IV CONT ONLY 09/07/2024 REASON FOR EXAM: VOMITING TECHNIQUE: Abdomen and pelvis CT with intravenous contrast. Coronal and Sagittal reconstruction series were provided. PATIENT PREPARATION: Per protocol ORAL CONTRAST TYPE: None. CONTRAST: Isovue 370 VOLUME: 100 mL One or more dose reduction techniques were used (e.g., Automated exposure control, adjustment of the mA and/or kV according to patient size, use of iterative reconstruction technique. COMPARISON: None FINDINGS: Lung bases: Mild dependent atelectasis Liver: Diffuse fatty infiltration. Gallbladder: Unremarkable Spleen: Normal size. Pancreas: Normal size without evidence of mass surrounding inflammation or ductal dilation. Adrenals: Unremarkable Kidneys: Normal renal sizes. No hydronephrosis. Bladder: Unremarkable Bowel: Fluid-filled nondistended small bowel loops. Fluid is seen in the colon. Appendix: The appendix is not identified. There is no inflammatory process identified in the right lower quadrant to suggest appendicitis. Lymph nodes: Unremarkable. Vasculature: The abdominal aorta and IVC are normal. Peritoneum / Retroperitoneum: Unremarkable Bones: Unremarkable CT/Abdomen/Pelvis W IV Cont ONLY IMPRESSION: Fatty infiltration of the liver. Fluid-filled nondilated small bowel loops. Gastroenteritis should be ruled out . Reading Location: [place] [id number]
--- NOTE | 2024-09-07 14:07 | CT_ITS ---
PROCEDURE: CTA CHEST W/WO CONTRAST 09/07/2024 REASON FOR EXAM: PULMONARY EMBOLISM TECHNIQUE: CTA axial imaging of the chest with intravenous contrast. Coronal and Sagittal reconstruction series were provided. 3D, 3D post processing, 3D reconstructions, Maximum intensity projection (MIPs) Volume rendering and Shaded surface rendering was provided. PATIENT PREPARATION: Per protocol One or more dose reduction techniques were used (e.g., Automated exposure control, adjustment of the mA and/or kV according to patient size, use of iterative reconstruction technique). CONTRAST: Isovue 370 VOLUME: 100 mL RADIATION DOSE SUMMARY: CTDlvol: 11 mGy DLP: 1187.59 mGycm COMPARISON: Comparison is made with prior study dated August 02, 2024. FINDINGS: Hardware: None Lymph nodes: Unremarkable Heart: Unremarkable no coronary artery calcification. Thoracic Aorta: No thoracic aortic aneurysm or dissection. Pulmonary Vessels: No evidence of acute pulmonary emboli through the major subsegmental branches. Most Proximal Level of Embolus (if embolus present): Lungs and Airways: Mild dependent atelectasis. Pleura: No pleural effusion. No pneumothorax. Upper Abdomen: Visualized portions of the upper abdominal viscera are unremarkable. Bones: Bone windows are unremarkable. CT/CTA Chest W/WO Contrast IMPRESSION: No acute abnormality is seen. [facility]
[2024-09-07 15:00] VITALS: BP 91/62; PULSE 103; RESP 16; O2SAT 98
[2024-09-07 15:44] LABS: Troponin T High Sens 2 HR 13 ng/L (<=22)
[2024-09-07 15:47] VITALS: BP 102/77; PULSE 102; RESP 16; TEMP 36.6; O2SAT 98
== END 2024-09-07 15:52 | disposition home or self-care (01) ==
PROVIDERS: Emergency Provider Emergency Medicine; PCP Nurse Practitioner Family; Visit Provider Emergency Medicine
DX: I47.20 Ventricular tachycardia, unspecified (principal); I50.42 Chronic combined systolic (congestive) and diastolic (congestive) heart failure; I42.8 Other cardiomyopathies; R11.2 Nausea with vomiting, unspecified; M54.9 Dorsalgia, unspecified; F41.9 Anxiety disorder, unspecified; F32.A Depression, unspecified; F17.210 Nicotine dependence, cigarettes, uncomplicated; Z88.0 Allergy status to penicillin; Z79.899 Other long term (current) drug therapy
CPT/HCPCS: 71045; 71275; 74177; 80048; 80076; 81001; 83690; 83880; 84484; 85025; 85610; 85730; 93005; 99283; Q9967; A4216

== ENCOUNTER → 2024-10-01 | Outpatient (CLI) | payer SELFPAY ==
[2024-10-01 09:08] LABS: Anion Gap 11 (5-15); BUN 14 mg/dL (4-19); Calcium,Total 9.6 mg/dL (7.6-11.0); Carbon Dioxide 24.5 mmol/L (21.0-32.0); Chloride 102 mmol/L (98-108); EST Glomerular Filtration Rate 102 (>60); Glucose 148 mg/dL (70-99); Potassium 4.2 mmol/L (3.3-5.1); Pro- Brain NATRIURETIC PEPTIDE 2697 pg/mL (<=900); Sodium Level 137 mmol/L (133-145)
== END | disposition home or self-care (01) ==
LOC: LAB 07:57
PROVIDERS: PCP Nurse Practitioner Family; Referring Provider Student in an Organized Health Care Education/Training Program; Visit Provider Student in an Organized Health Care Education/Training Program
DX: I50.43 Acute on chronic combined systolic (congestive) and diastolic (congestive) heart failure (principal)
CPT/HCPCS: 36415; 80048; 83880

== ENCOUNTER 2024-10-07 12:37 | Observation (INO) | payer SELFPAY ==
[2024-10-07] VITALS (31 sets, daily range): BP systolic 88–115; BP diastolic 59–84; PULSE 83–112; RESP 14–27; TEMP 36.5–37.6; O2SAT 95–100; BMI 24.9; BMI 23.6
--- NOTE | 2024-10-07 13:05 | EKG12_ITS ---
Test Reason : SYNCOPE Blood Pressure : */* mmHG Vent. Rate : 86 BPM Atrial Rate : 86 BPM P-R Int : 230 ms QRS Dur : 96 ms QT Int : 394 ms P-R-T Axes : 36 -48 166 degrees QTcB Int : 471 ms Sinus rhythm with marked sinus arrhythmia with 1st degree A-V block Left anterior fascicular block ST & T wave abnormality, consider lateral ischemia Prolonged QT Abnormal ECG Confirmed by Kedar Potts ([id number]), film editor THO JANG ([id number]) on 10/12/2024 1:05:41 PM Referred By: ASHLEY/JUAN Confirmed By: Kedar Potts
[2024-10-07 13:13] LABS: Absolute Neutrophil Count 4.2 X10^3/uL (2.0-7.7); Basophil# 0.03 X10^3/uL; Basophil% 0.5 % (0-1); Eosinophil# 0.14 X10^3/uL; Eosinophils% 2.3 % (0-5); Hematocrit 43.4 % (40-54); Hemoglobin 15.2 g/dL (13.0-16.5); Lymphocyte % 19.6 % (19-41); Mean Corpuscular Hgb 31.1 pg (27.0-32.0); Mean Corpuscular Volume 88.9 fL (80-94); Mean Platelet Vol. 9.9 fl (6.2-12.0); Monocyte# 0.51 X10^3/uL; Monocyte% 8.3 % (0-10); NRBC Flagged by Analyzer 0 % (0-5); Neutrophil % 68.8 % (47-70); Platelet Count 160 K/mm3 (150-450); RBC Distribution Width SD 45.7 fl (35.1-43.9); Red Blood Count 4.88 M/mm3 (4.6-6.2); White Blood Count 6.1 K/mm3 (4.4-11.0)
--- NOTE | 2024-10-07 13:43 | EX.ED.DYSGE1 ---
HPI History of Present Illness Chief Complaint: Syncope Informant: patient and spouse/S.O. Onset/Context/Timing Onset: Today Context: Sudden Onset Current Severity: Gone Maximum Severity: Mild Narrative Narrative: 53-year-old male history of CHF and cardiomyopathy. Said that he was coming of his bathroom after urinating felt fine and had a syncopal episode. Lasted less than a minute. It was unwitnessed. 70 fell he thinks he had the wall causing abrasion on his nose. Denies any head ache or neck pain. Denies any back or chest pain. Denies any abdominal pain. No recent illness. No recent or history of syncopal events. No history of dysrhythmia. Prior similar symptoms: No Recent Illness/Hospitalization: No PFSH PFSH Medical History Chronic combined systolic and diastolic CHF (congestive heart failure) Paroxysmal ventricular tachycardia Anxiety and depression Non-ischemic cardiomyopathy Home Medications ?Medication ?Instructions ?Recorded ?Last Taken ?Type lurasidone 60 mg tablet (Latuda) 60 mg PO QHS 07/07/23 10/06/24 History furosemide 40 mg tablet (Lasix) 40 mg PO QAM 09/18/24 10/07/24 History carvedilol 6.25 mg tablet (Coreg) 12.5 mg (2 x 6.25 mg) PO BID #180 09/27/24 10/07/24 Rx tabs spironolactone 25 mg tablet 25 mg PO QHS 10/07/24 10/06/24 History Allergy/AdvReac Type Severity Reaction Status Date / Time Penicillins (PCN) Allergy Unknown Verified 10/07/24 12:38 Family History Father CAD (coronary artery disease) Mother CHF (congestive heart failure) Surgical History History of left heart catheterization (11/22/14) Social History Smoking Status: Current every day smoker tobacco type: smokeless tobacco alcohol intake: current alcohol intake frequency: holidays/special occasions only substance use type: does not use caffeine: Yes Type: coffee Number of servings: 2 ROS ROS ED ROS Narrative Denies recent illness. Syncope today. Constitutional Constitutional ED: Denies chills or fever(s) Eyes Eyes: Denies blurry vision ENT ENT ED: Denies ear pain Cardiovascular Cardiovascular: Denies chest pain, palpitations or racing heartbeat Respiratory/Chest Respiratory/Chest: Denies cough Gastrointestinal Gastrointestinal: Denies abdominal pain, constipation, diarrhea, melena, nausea or vomiting Genitourinary Genitourinary ED: Denies dysuria or hematuria Musculoskeletal Musculoskeletal: Denies arthralgias or back pain Integumentary Denies abscess or Abrasions Neurologic Neurologic: Denies headache(s) Psychiatric Psychiatric: Denies anxiety or depression Endocrine Endocrinology: Denies cold intolerance Hematologic/Lymphatic Hematologic/Lymphatic: Reports none Allergic/Immunologic Allergic/Immunologic ED: Denies mouth swelling, tongue swelling or urticaria EXAM Physical Exam Narrative Exam Narrative: 53-year-old [facility] male sitting upright in bed. at bedside. Currently his vital signs are stable afebrile. His pulse ox 99% on room air no hypoxia. He is in no distress. Denies any complaints. H EENT exam pupils round reactive light. No trauma to his face or scalp other than abrasion to the tip of his nose. There is no active bleeding. There is dried blood on the tip of his nose. There is no active nosebleed. There is no Black bony deformity to his nasal bridge. No other trauma to his no hematoma. No laceration. Nontender. C-spine nontender. Back and spine nontender. Trachea midline. Lungs clear to auscultation bilaterally. Heart regular rhythm rate about 85 no murmur. Chest wall ribs nontender. Abdomen soft nontender. Moving all 4 extremities. Normal podiatry professor strength. Normal range of motion. Lower extremities are nontender. No edema. No deformity. Normal dorsi plantarflexion. Normal range of motion. Neurologically is awake alert. Answering questions following commands. GCS 15. NIH 0. Const Vital Signs: 10/07/24 12:39 10/07/24 12:41 10/07/24 12:44 Temperature 97.7 F L Temperature Source Oral Pulse Rate 87 83 Pulse Rate [Lying] Pulse Rate [Sitting (for 1 minute prior to obtaining)] Pulse Rate [Standing (for 1 minute prior to obtaining)] Respiratory Rate 18 16 Respiratory Effort Normal Non-Labored Respiratory Pattern Normal Blood Pressure 110/78 111/78 Blood Pressure [Lying] Blood Pressure [Sitting (for 1 minute prior to obtaining)] Blood Pressure [Standing (for 1 minute prior to obtaining)] Blood Pressure Mean 88 89 Blood Pressure Mean [Lying] Blood Pressure Mean [Sitting (for 1 minute prior to obtaining)] Blood Pressure Mean [Standing (for 1 minute prior to obtaining)] Pulse Ox 99 99 Oxygen Delivery Method Room Air Room Air 10/07/24 12:59 10/07/24 13:00 10/07/24 13:15 Temperature Temperature Source Pulse Rate 85 90 Pulse Rate [Lying] Pulse Rate [Sitting (for 1 minute prior to obtaining)] Pulse Rate [Standing (for 1 minute prior to obtaining)] Respiratory Rate 14 23 H Respiratory Effort Respiratory Pattern Blood Pressure 111/82 H 108/76 Blood Pressure [Lying] Blood Pressure [Sitting (for 1 minute prior to obtaining)] Blood Pressure [Standing (for 1 minute prior to obtaining)] Blood Pressure Mean 91 86 Blood Pressure Mean [Lying] Blood Pressure Mean [Sitting (for 1 minute prior to obtaining)] Blood Pressure Mean [Standing (for 1 minute prior to obtaining)] Pulse Ox 100 100 Oxygen Delivery Method 10/07/24 13:30 10/07/24 13:45 10/07/24 13:48 Temperature Temperature Source Pulse Rate 86 90 Pulse Rate [Lying] 89 Pulse Rate [Sitting (for 1 minute prior to obtaining)] 93 Pulse Rate [Standing (for 1 minute prior to obtaining)] 95 Respiratory Rate 25 H 27 H Respiratory Effort Respiratory Pattern Blood Pressure 104/75 105/73 Blood Pressure [Lying] 105/73 Blood Pressure [Sitting (for 1 minute prior to obtaining)] 103/60 Blood Pressure [Standing (for 1 minute prior to obtaining)] 102/68 Blood Pressure Mean 84 83 Blood Pressure Mean [Lying] 83 Blood Pressure Mean [Sitting (for 1 minute prior to obtaining)] 74 Blood Pressure Mean [Standing (for 1 minute prior to obtaining)] 79 Pulse Ox 99 100 Oxygen Delivery Method 10/07/24 13:49 10/07/24 13:51 10/07/24 14:00 Temperature Temperature Source Pulse Rate 92 93 Pulse Rate [Lying] Pulse Rate [Sitting (for 1 minute prior to obtaining)] Pulse Rate [Standing (for 1 minute prior to obtaining)] Respiratory Rate 19 H 16 Respiratory Effort Respiratory Pattern Blood Pressure 103/60 102/68 99/73 Blood Pressure [Lying] Blood Pressure [Sitting (for 1 minute prior to obtaining)] Blood Pressure [Standing (for 1 minute prior to obtaining)] Blood Pressure Mean 72 79 82 Blood Pressure Mean [Lying] Blood Pressure Mean [Sitting (for 1 minute prior to obtaining)] Blood Pressure Mean [Standing (for 1 minute prior to obtaining)] Pulse Ox 100 100 Oxygen Delivery Method 10/07/24 14:00 10/07/24 14:15 10/07/24 14:30 Temperature Temperature Source Pulse Rate 90 90 Pulse Rate [Lying] Pulse Rate [Sitting (for 1 minute prior to obtaining)] Pulse Rate [Standing (for 1 minute prior to obtaining)] Respiratory Rate 18 19 H Respiratory Effort Respiratory Pattern Blood Pressure 99/73 105/72 105/72 Blood Pressure [Lying] Blood Pressure [Sitting (for 1 minute prior to obtaining)] Blood Pressure [Standing (for 1 minute prior to obtaining)] Blood Pressure Mean 82 83 83 Blood Pressure Mean [Lying] Blood Pressure Mean [Sitting (for 1 minute prior to obtaining)] Blood Pressure Mean [Standing (for 1 minute prior to obtaining)] Pulse Ox 99 99 Oxygen Delivery Method 10/07/24 14:45 10/07/24 14:45 10/07/24 15:00 Temperature Temperature Source Pulse Rate 89 90 91 Pulse Rate [Lying] Pulse Rate [Sitting (for 1 minute prior to obtaining)] Pulse Rate [Standing (for 1 minute prior to obtaining)] Respiratory Rate 20 H 16 22 H Respiratory Effort Respiratory Pattern Blood Pressure 107/76 107/76 105/76 Blood Pressure [Lying] Blood Pressure [Sitting (for 1 minute prior to obtaining)] Blood Pressure [Standing (for 1 minute prior to obtaining)] Blood Pressure Mean 86 85 85 Blood Pressure Mean [Lying] Blood Pressure Mean [Sitting (for 1 minute prior to obtaining)] Blood Pressure Mean [Standing (for 1 minute prior to obtaining)] Pulse Ox 98 99 99 Oxygen Delivery Method Room Air 10/07/24 15:15 10/07/24 15:39 10/07/24 15:45 Temperature Temperature Source Pulse Rate 91 92 102 H Pulse Rate [Lying] Pulse Rate [Sitting (for 1 minute prior to obtaining)] Pulse Rate [Standing (for 1 minute prior to obtaining)] Respiratory Rate 19 H 16 23 H Respiratory Effort Respiratory Pattern Blood Pressure 103/74 98/74 Blood Pressure [Lying] Blood Pressure [Sitting (for 1 minute prior to obtaining)] Blood Pressure [Standing (for 1 minute prior to obtaining)] Blood Pressure Mean 83 80 Blood Pressure Mean [Lying] Blood Pressure Mean [Sitting (for 1 minute prior to obtaining)] Blood Pressure Mean [Standing (for 1 minute prior to obtaining)] Pulse Ox 100 100 100 Oxygen Delivery Method 10/07/24 16:00 10/07/24 16:15 10/07/24 16:30 Temperature Temperature Source Pulse Rate 90 87 95 Pulse Rate [Lying] Pulse Rate [Sitting (for 1 minute prior to obtaining)] Pulse Rate [Standing (for 1 minute prior to obtaining)] Respiratory Rate 18 25 H 19 H Respiratory Effort Respiratory Pattern Blood Pressure 99/69 105/74 100/73 Blood Pressure [Lying] Blood Pressure [Sitting (for 1 minute prior to obtaining)] Blood Pressure [Standing (for 1 minute prior to obtaining)] Blood Pressure Mean 79 84 82 Blood Pressure Mean [Lying] Blood Pressure Mean [Sitting (for 1 minute prior to obtaining)] Blood Pressure Mean [Standing (for 1 minute prior to obtaining)] Pulse Ox 99 97 98 Oxygen Delivery Method 10/07/24 16:45 10/07/24 16:55 10/07/24 17:00 Temperature 98.1 F Temperature Source Pulse Rate 105 H 100 94 Pulse Rate [Lying] Pulse Rate [Sitting (for 1 minute prior to obtaining)] Pulse Rate [Standing (for 1 minute prior to obtaining)] Respiratory Rate 19 H 19 H 18 Respiratory Effort Respiratory Pattern Blood Pressure 95/84 H 95/84 H Blood Pressure [Lying] Blood Pressure [Sitting (for 1 minute prior to obtaining)] Blood Pressure [Standing (for 1 minute prior to obtaining)] Blood Pressure Mean 90 87 Blood Pressure Mean [Lying] Blood Pressure Mean [Sitting (for 1 minute prior to obtaining)] Blood Pressure Mean [Standing (for 1 minute prior to obtaining)] Pulse Ox 96 98 98 Oxygen Delivery Method Positive well nourished and well developed; Negative for obese, cachectic, contractures or unkempt General Appearance ED: well developed; Negative for unkempt, cachectic, contractures, cyanotic or diaphoretic Nutritional Appearance: Negative for cachectic or obese HEENT Reports moist mucous membranes HEENT Narrative: Nasal bridge trauma. Abrasion. Dried blood. No deformity. No active nosebleed. trauma Eyes PERRL and EOMs intact bilaterally Neck no lymphadenopathy, supple and no JVD Chest Wall inspection of chest normal and palpation of chest normal Resp normal respiratory effort and clear to auscultation bilaterally Cardio regular rate, regular rhythm, S1 normal heart sound, S2 normal heart sound and no murmurs GI normal to inspection, nondistended, normoactive bowel sounds, non-distended and no masses Inspection: Negative for abdominal distention Auscultation: normoactive bowel sounds Palpation: soft; Negative for tender, guarding or rebound tenderness present Back/Spine no CVA tenderness General Back: Negative for CVA tenderness Cervical Spine: Negative for cervical spine tenderness Thoracic Spine / Upper Back: Negative for thoracic spinal tenderness or paraspinal muscle tenderness Lumbar Spine / Lower Back: Negative for lumbar spinal tenderness Extremity normal to inspection General Extremety ED: Negative for edema or tenderness General Extremity: Negative for edema Neuro oriented x3, CN's II-XII intact bilaterally and no sensory deficits noted Sensorium / Orientation: alert; Negative for orientation impaired, lethargic or stuporous Motor Exam: strength 5/5 throughout Psych mental status grossly normal Appearance: Negative for unkempt Attitude: No agitated Mood & Affect: Negative for depressed, anxious or tearful Skin no rashes or lesions noted Skin Narrative: Abrasion anterior nasal tip. Dried blood. Rashes: No rashes noted Trauma: abrasion MDM MDM MDM Narrative Medical decision making narrative: 53-year-old male had a syncopal episode. No prior history of syncope. Reportedly history of CHF and reported cardiomyopathy. Undergo cardiac workup. His exam is benign other than nasal abrasion. I do not think he needs any imaging of his brain. Repeat exam at 4:40 PM unchanged. Discussed with patient that I do not have a specific cause for his syncope. Admission for observation of this heart rhythm versus discharged home and he and his prefer to get admitted. I have the hospitalist on page. History & Record Review Discussion w/independent historian: Patient and Family Additional record(s) reviewed:: Prior inpatient record, Prior outpatient record, Prior ED visit and Prior labs Lab Data Attestation: I reviewed the patient's lab results. Lab results narrative: CBC unremarkable. White count of 6. H&H 15 and 43. Platelets 160. Chemistry shows sodium 135. Gap 12. BUN and creatinine 10 and 0.8. Glucose 123. Liver enzymes normal. Troponin was 10. Patient's most recent echo showed an EF of 25% in the last month or 2. Labs: Laboratory Results - last 24 hr 10/07/24 12:45 WBC 6.1 RBC 4.88 Hgb 15.2 Hct 43.4 MCV 88.9 MCH 31.1 MCHC 35.0 RDW Std Deviation 45.7 H RDW Coeff of Dusty 14.0 Plt Count 160 MPV 9.9 Immature Gran % (Auto) 0.500 Neut % (Auto) 68.8 Lymph % (Auto) 19.6 [place] % (Auto) 8.3 Eos % (Auto) 2.3 Baso % (Auto) 0.5 Absolute Neuts (auto) 4.2 Absolute Lymphs (auto) 1.20 Nucleated RBC % 0 Sodium 135 Potassium 3.8 Chloride 100 Carbon Dioxide 23.7 Anion Gap 12 BUN 10 Creatinine 0.80 Estim Creat Clear Calc 117.21 Est GFR (MDRD) Non-Af 106 BUN/Creatinine Ratio 12.5 Glucose 123 H Calcium 9.0 Total Bilirubin 0.53 AST 26 ALT 21 Alkaline Phosphatase 48 Troponin T High Sens 10 D Total Protein 7.0 Albumin 4.1 Globulin 2.9 Albumin/Globulin Ratio 1.4 Radiography Chest X-Ray - ED: Read by ED Physician, Read by Radiologist, Lungs, Mediastinum, Bony Structures, No Acute Disease and Chronic Changes Diagnostic Testing: Clinical Impression(s) from Imaging Studies Chest X-Ray 10/07/24 14:06 IMPRESSION: Stable mild cardiomegaly. No acute findings. Reading Location: [facility] Chest x-ray, 2 views, AP and lateral, interpreted by myself and radiologist shows chronic cardiomegaly. Otherwise no acute process. No pneumonia. No effusion. Rhythm Strip Rhythm Strip: Sinus Rhythm Rate: 86 Ectopy: None EKG Initial EKG: Attestation: I personally reviewed and interpreted this EKG as follows: Interpretation: Sinus Rhythm and No Acute Injury Pattern Comments: Normal sinus rhythm rate 86. No acute signs of MN or ischemia. Left anterior fascicular block. LA interval of 230. Inverted T waves in leads V4 through V6. No ST elevation. Discharge Plan Dx/Rx/DC Orders Clinical Impression: Syncope, History of cardiomegaly, Closed head injury, Abrasion of nose Disposition Disposition: [facility]
[2024-10-07 13:46] LABS: ALB/GLOB Ratio 1.4 RATIO (0.9-2.4); AST(SGOT) 26 U/L (<=37); Alanine Aminotransfer ALT/SGPT 21 U/L (<=46); Albumin, Serum 4.1 g/dL (3.5-5.0); Alkaline Phosphatase 48 U/L (40-129); Anion Gap 12 (5-15); BUN 10 mg/dL (4-19); BUN/Creat Ratio 12.5 RATIO (10-20); Carbon Dioxide 23.7 mmol/L (21.0-32.0); Chloride 100 mmol/L (98-108); EST Glomerular Filtration Rate 106 (>60); Estimated Creatinine Clearance 117.21 ml/min (50-250); Globulin 2.9 g/dL (2.2-4.2); Glucose 123 mg/dL (70-99); Potassium 3.8 mmol/L (3.3-5.1); Sodium Level 135 mmol/L (133-145); Total Bilirubin 0.53 mg/dL (0.00-1.30)
--- NOTE | 2024-10-07 14:06 | RAD_ITS ---
PROCEDURE: CHEST PA AND LATERAL 10/07/2024 REASON FOR EXAM: SYNCOPE TECHNIQUE: Frontal and lateral views of the chest. COMPARISON: Chest radiograph and CTA chest 09/07/2024. FINDINGS: Hardware: None. Heart: Stable mild cardiomegaly. Mediastinum: The mediastinal contour is unremarkable. Lungs: No focal consolidation, pleural effusion or pneumothorax. Bones: Degenerative changes are identified within the thoracic spine. RAD/Chest PA and Lateral IMPRESSION: Stable mild cardiomegaly. No acute findings. Reading Location: [id number]
[2024-10-07 14:14] LABS: Troponin T High Sensitivity 10 ng/L (<=22)
--- NOTE | 2024-10-07 18:23 | PCM.HP.STD ---
HPI - General General Date of Admission: 10/07/24 HPI Narrative CARLOS ENRIQUE GAVIN, is a 53 M who presents to the hospital with syncope. He has a history of systolic CHF with an EF of 25% on echo from 09/05/2024. He states that he has had a head cold for the last couple days and did not eat or drink anything today and got up to go to the bathroom and he felt little bit dizzy before he urinated and then when he was finished and he was walking out of the bathroom he felt lightheaded and then passed out. He does have an abrasion on his nose any states that he thinks he either hit a wall or or hit the floor. In the ER his lab work was unremarkable, his initial set of orthostatic vital signs were also normal. No arrhythmias were noted and he does not have a seizure history, but the fall was unwitnessed but was felt to be less than a minute and there is no postictal phase. There is no recent changes to his medications. [facility] Medical History Chronic combined systolic and diastolic CHF (congestive heart failure) Paroxysmal ventricular tachycardia Anxiety and depression Non-ischemic cardiomyopathy Home Medications ?Medication ?Instructions ?Recorded ?Last Taken ?Type lurasidone 60 mg tablet (Latuda) 60 mg PO QHS 07/07/23 10/06/24 History furosemide 40 mg tablet (Lasix) 40 mg PO QAM 09/18/24 10/07/24 History carvedilol 6.25 mg tablet (Coreg) 12.5 mg (2 x 6.25 mg) PO BID #180 09/27/24 10/07/24 Rx tabs spironolactone 25 mg tablet 25 mg PO QHS 10/07/24 10/06/24 History Allergy/AdvReac Type Severity Reaction Status Date / Time Penicillins (PCN) Allergy Unknown Verified 10/07/24 12:38 Family History Father CAD (coronary artery disease) Mother CHF (congestive heart failure) Surgical History History of left heart catheterization (11/22/14) Social History Smoking Status: Current every day smoker tobacco type: smokeless tobacco alcohol intake: current alcohol intake frequency: holidays/special occasions only substance use type: does not use caffeine: Yes Type: coffee Number of servings: 2 ROS Constitutional Constitutional: Denies chills, fatigue, fever(s) or malaise Eyes Eyes: Denies blurry vision ENT HEENT: Denies headache(s) or nasal discharge Cardiovascular Cardiovascular: Reports syncope; Denies chest pain or dyspnea on exertion Respiratory/Chest Respiratory/Chest: Denies cough, shortness of breath at rest or shortness of breath with exertion Gastrointestinal Gastrointestinal: Denies constipation, diarrhea, nausea or vomiting Genitourinary Genitourinary: Denies dysuria Neurologic Neurologic: Denies focal weakness, numbness or tremor(s) Psychiatric Psychiatric: Denies anxiety or depression Vital Signs Vital Signs Vital Signs: 10/07/24 12:39 10/07/24 12:41 10/07/24 12:44 Temperature 97.7 F L Temperature Source Oral Pulse Rate 87 83 Pulse Rate [Lying] Pulse Rate [Sitting (for 1 minute prior to obtaining)] Pulse Rate [Standing (for 1 minute prior to obtaining)] Respiratory Rate 18 16 Respiratory Effort Normal Non-Labored Respiratory Pattern Normal Blood Pressure 110/78 111/78 Blood Pressure [Lying] Blood Pressure [Sitting (for 1 minute prior to obtaining)] Blood Pressure [Standing (for 1 minute prior to obtaining)] Blood Pressure Mean 88 89 Blood Pressure Mean [Lying] Blood Pressure Mean [Sitting (for 1 minute prior to obtaining)] Blood Pressure Mean [Standing (for 1 minute prior to obtaining)] Pulse Ox 99 99 Oxygen Delivery Method Room Air Room Air 10/07/24 12:59 10/07/24 13:00 10/07/24 13:15 Temperature Temperature Source Pulse Rate 85 90 Pulse Rate [Lying] Pulse Rate [Sitting (for 1 minute prior to obtaining)] Pulse Rate [Standing (for 1 minute prior to obtaining)] Respiratory Rate 14 23 H Respiratory Effort Respiratory Pattern Blood Pressure 111/82 H 108/76 Blood Pressure [Lying] Blood Pressure [Sitting (for 1 minute prior to obtaining)] Blood Pressure [Standing (for 1 minute prior to obtaining)] Blood Pressure Mean 91 86 Blood Pressure Mean [Lying] Blood Pressure Mean [Sitting (for 1 minute prior to obtaining)] Blood Pressure Mean [Standing (for 1 minute prior to obtaining)] Pulse Ox 100 100 Oxygen Delivery Method 10/07/24 13:30 10/07/24 13:45 10/07/24 13:48 Temperature Temperature Source Pulse Rate 86 90 Pulse Rate [Lying] 89 Pulse Rate [Sitting (for 1 minute prior to obtaining)] 93 Pulse Rate [Standing (for 1 minute prior to obtaining)] 95 Respiratory Rate 25 H 27 H Respiratory Effort Respiratory Pattern Blood Pressure 104/75 105/73 Blood Pressure [Lying] 105/73 Blood Pressure [Sitting (for 1 minute prior to obtaining)] 103/60 Blood Pressure [Standing (for 1 minute prior to obtaining)] 102/68 Blood Pressure Mean 84 83 Blood Pressure Mean [Lying] 83 Blood Pressure Mean [Sitting (for 1 minute prior to obtaining)] 74 Blood Pressure Mean [Standing (for 1 minute prior to obtaining)] 79 Pulse Ox 99 100 Oxygen Delivery Method 10/07/24 13:49 10/07/24 13:51 10/07/24 14:00 Temperature Temperature Source Pulse Rate 92 93 Pulse Rate [Lying] Pulse Rate [Sitting (for 1 minute prior to obtaining)] Pulse Rate [Standing (for 1 minute prior to obtaining)] Respiratory Rate 19 H 16 Respiratory Effort Respiratory Pattern Blood Pressure 103/60 102/68 99/73 Blood Pressure [Lying] Blood Pressure [Sitting (for 1 minute prior to obtaining)] Blood Pressure [Standing (for 1 minute prior to obtaining)] Blood Pressure Mean 72 79 82 Blood Pressure Mean [Lying] Blood Pressure Mean [Sitting (for 1 minute prior to obtaining)] Blood Pressure Mean [Standing (for 1 minute prior to obtaining)] Pulse Ox 100 100 Oxygen Delivery Method 10/07/24 14:00 10/07/24 14:15 10/07/24 14:30 Temperature Temperature Source Pulse Rate 90 90 Pulse Rate [Lying] Pulse Rate [Sitting (for 1 minute prior to obtaining)] Pulse Rate [Standing (for 1 minute prior to obtaining)] Respiratory Rate 18 19 H Respiratory Effort Respiratory Pattern Blood Pressure 99/73 105/72 105/72 Blood Pressure [Lying] Blood Pressure [Sitting (for 1 minute prior to obtaining)] Blood Pressure [Standing (for 1 minute prior to obtaining)] Blood Pressure Mean 82 83 83 Blood Pressure Mean [Lying] Blood Pressure Mean [Sitting (for 1 minute prior to obtaining)] Blood Pressure Mean [Standing (for 1 minute prior to obtaining)] Pulse Ox 99 99 Oxygen Delivery Method 10/07/24 14:45 10/07/24 14:45 10/07/24 15:00 Temperature Temperature Source Pulse Rate 89 90 91 Pulse Rate [Lying] Pulse Rate [Sitting (for 1 minute prior to obtaining)] Pulse Rate [Standing (for 1 minute prior to obtaining)] Respiratory Rate 20 H 16 22 H Respiratory Effort Respiratory Pattern Blood Pressure 107/76 107/76 105/76 Blood Pressure [Lying] Blood Pressure [Sitting (for 1 minute prior to obtaining)] Blood Pressure [Standing (for 1 minute prior to obtaining)] Blood Pressure Mean 86 85 85 Blood Pressure Mean [Lying] Blood Pressure Mean [Sitting (for 1 minute prior to obtaining)] Blood Pressure Mean [Standing (for 1 minute prior to obtaining)] Pulse Ox 98 99 99 Oxygen Delivery Method Room Air 10/07/24 15:15 10/07/24 15:39 10/07/24 15:45 Temperature Temperature Source Pulse Rate 91 92 102 H Pulse Rate [Lying] Pulse Rate [Sitting (for 1 minute prior to obtaining)] Pulse Rate [Standing (for 1 minute prior to obtaining)] Respiratory Rate 19 H 16 23 H Respiratory Effort Respiratory Pattern Blood Pressure 103/74 98/74 Blood Pressure [Lying] Blood Pressure [Sitting (for 1 minute prior to obtaining)] Blood Pressure [Standing (for 1 minute prior to obtaining)] Blood Pressure Mean 83 80 Blood Pressure Mean [Lying] Blood Pressure Mean [Sitting (for 1 minute prior to obtaining)] Blood Pressure Mean [Standing (for 1 minute prior to obtaining)] Pulse Ox 100 100 100 Oxygen Delivery Method 10/07/24 16:00 10/07/24 16:15 10/07/24 16:30 Temperature Temperature Source Pulse Rate 90 87 95 Pulse Rate [Lying] Pulse Rate [Sitting (for 1 minute prior to obtaining)] Pulse Rate [Standing (for 1 minute prior to obtaining)] Respiratory Rate 18 25 H 19 H Respiratory Effort Respiratory Pattern Blood Pressure 99/69 105/74 100/73 Blood Pressure [Lying] Blood Pressure [Sitting (for 1 minute prior to obtaining)] Blood Pressure [Standing (for 1 minute prior to obtaining)] Blood Pressure Mean 79 84 82 Blood Pressure Mean [Lying] Blood Pressure Mean [Sitting (for 1 minute prior to obtaining)] Blood Pressure Mean [Standing (for 1 minute prior to obtaining)] Pulse Ox 99 97 98 Oxygen Delivery Method 10/07/24 16:45 10/07/24 16:55 10/07/24 17:00 Temperature 98.1 F Temperature Source Pulse Rate 105 H 100 94 Pulse Rate [Lying] Pulse Rate [Sitting (for 1 minute prior to obtaining)] Pulse Rate [Standing (for 1 minute prior to obtaining)] Respiratory Rate 19 H 19 H 18 Respiratory Effort Respiratory Pattern Blood Pressure 95/84 H 95/84 H Blood Pressure [Lying] Blood Pressure [Sitting (for 1 minute prior to obtaining)] Blood Pressure [Standing (for 1 minute prior to obtaining)] Blood Pressure Mean 90 87 Blood Pressure Mean [Lying] Blood Pressure Mean [Sitting (for 1 minute prior to obtaining)] Blood Pressure Mean [Standing (for 1 minute prior to obtaining)] Pulse Ox 96 98 98 Oxygen Delivery Method 10/07/24 17:00 10/07/24 17:15 10/07/24 17:30 Temperature Temperature Source Pulse Rate 100 Pulse Rate [Lying] Pulse Rate [Sitting (for 1 minute prior to obtaining)] Pulse Rate [Standing (for 1 minute prior to obtaining)] Respiratory Rate 16 Respiratory Effort Respiratory Pattern Blood Pressure 96/71 96/62 94/65 Blood Pressure [Lying] Blood Pressure [Sitting (for 1 minute prior to obtaining)] Blood Pressure [Standing (for 1 minute prior to obtaining)] Blood Pressure Mean 80 70 74 Blood Pressure Mean [Lying] Blood Pressure Mean [Sitting (for 1 minute prior to obtaining)] Blood Pressure Mean [Standing (for 1 minute prior to obtaining)] Pulse Ox 97 Oxygen Delivery Method 10/07/24 17:45 10/07/24 17:45 10/07/24 18:00 Temperature Temperature Source Pulse Rate 97 96 Pulse Rate [Lying] Pulse Rate [Sitting (for 1 minute prior to obtaining)] Pulse Rate [Standing (for 1 minute prior to obtaining)] Respiratory Rate 17 21 H Respiratory Effort Respiratory Pattern Blood Pressure 91/64 88/67 L 94/67 Blood Pressure [Lying] Blood Pressure [Sitting (for 1 minute prior to obtaining)] Blood Pressure [Standing (for 1 minute prior to obtaining)] Blood Pressure Mean 73 73 76 Blood Pressure Mean [Lying] Blood Pressure Mean [Sitting (for 1 minute prior to obtaining)] Blood Pressure Mean [Standing (for 1 minute prior to obtaining)] Pulse Ox 97 100 Oxygen Delivery Method 10/07/24 18:06 10/07/24 18:06 Temperature Temperature Source Pulse Rate 93 Pulse Rate [Lying] 94 Pulse Rate [Sitting (for 1 minute prior to obtaining)] 100 Pulse Rate [Standing (for 1 minute prior to obtaining)] 102 H Respiratory Rate 15 Respiratory Effort Respiratory Pattern Blood Pressure 98/69 Blood Pressure [Lying] 98/69 Blood Pressure [Sitting (for 1 minute prior to obtaining)] 88/59 L Blood Pressure [Standing (for 1 minute prior to obtaining)] Blood Pressure Mean 78 Blood Pressure Mean [Lying] 78 Blood Pressure Mean [Sitting (for 1 minute prior to obtaining)] 68 Blood Pressure Mean [Standing (for 1 minute prior to obtaining)] Pulse Ox Oxygen Delivery Method Weight Weight: 183 lb 10.321 oz Body Mass Index (BMI) 24.9 Physical Exam Narrative General: Alert, Oriented x3, Cooperative, No apparent distress HEENT: Atraumatic, PERRLA, EOMI, Normocephalic, abrasion on the tip of his nose Oral: Moist Mucosa Neck: Supple, No JVD Lungs: Diminished, Normal air movement, No rhonchi, No wheeze, No rales Cardiovascular: Regular rate, Regular Rhythm, Normal S1, Normal S2, No murmurs Abdomen: Soft, Non Tender, Non-Distended, No Hepato-splenomegaly Extremities: No edema, Capillary Refill Less than 3 Seconds Skin: No rashes, No breakdown Musculoskeletal: No Tenderness to Palpation of Joints or Extremities Neurological: No focal neurological deficits, Motor Exam 5/5 strength throughout, Sensory exam intact to light touch and pain Psych/Mental Status: Flat Results Lab / Micro Data 10/07/24 12:45 10/07/24 12:45 Labs: Laboratory Results - last 24 hr 10/07/24 12:45: WBC 6.1, RBC 4.88, Hgb 15.2, Hct 43.4, MCV 88.9, MCH 31.1, MCHC 35.0, RDW Std Deviation 45.7 H, RDW Coeff of Dusty 14.0, Plt Count 160, MPV 9.9, Immature Gran % (Auto) 0.500, Neut % (Auto) 68.8, Lymph % (Auto) 19.6, [place] % (Auto) 8.3, Eos % (Auto) 2.3, Baso % (Auto) 0.5, Absolute Neuts (auto) 4.2, Absolute Lymphs (auto) 1.20, Nucleated RBC % 0, Sodium 135, Potassium 3.8, Chloride 100, Carbon Dioxide 23.7, Anion Gap 12, BUN 10, Creatinine 0.80, Estim Creat Clear Calc 117.21, Est GFR (MDRD) Non-Af 106, BUN/Creatinine Ratio 12.5, Glucose 123 H, Calcium 9.0, Total Bilirubin 0.53, AST 26, ALT 21, Alkaline Phosphatase 48, Troponin T High Sens 10 D, Total Protein 7.0, Albumin 4.1, Globulin 2.9, Albumin/Globulin Ratio 1.4 Rhythm Strip Rhythm Strip: Sinus Rhythm Rate: 86 Ectopy: None Imaging Radiology Impression Chest X-Ray 10/07/24 14:06 IMPRESSION: Stable mild cardiomegaly. No acute findings. Reading Location: [id number] Assessment & Plan Assessment/Plan (1) Syncope: PLAN: Plan 1. Syncope/chronic systolic CHF/essential HTN ? Repeat orthostatic vital signs ? Will continue with telemetry to rule out arrhythmia, he had listed in his problem list paroxysmal V. tach back in 2019 ? Will hold his Lasix and Aldactone as well as his Coreg ? Continue with gentle IV fluids ? Echo on 09/05/2024 with an EF of 25% and moderate to severe global hypokinesis of left ventricle, if no improvement tomorrow and his symptoms may need a limited echo to see if he has had any worsening in this time, troponins are negative ? Will monitor make adjustments as necessary DVT: Ambulation Charges/Coding Visit Charges Inpatient E&M: 85217 Init Hosp L2
--- NOTE | 2024-10-07 18:25 | CASEMGMT ---
Care Management Face to Face with patient for initial transition planning/care coordination assessment in the ED.? This repairer typewriter introduced self and role at [facility]. Patient alert and oriented. Patient willing to participate in assessment and is able to answer all questions appropriately.? Care providers, pharmacy, and demographics verified. Patient?s was present and at patient?s bedside. Admitting Diagnosis: Syncope Other diagnosis history: Including but not limited to: CHF, Non-ischemic Cardiomyopathy, PCP: Dr. Christine Trujillo Specialists: [place]: Dr. Potts Preferred Pharmacy: [facility] Insurance: [facility] [place] [employer] ([facility]) Prescription Benefit: None; may be able to benefit from resources for discounted drug/medication programs. Living Will/HPOA: Yes; not currently on file. lumber yard worker requested patient?s to bring in copy when visiting with patient next which she stated she would do. LNOK: Patient?s . Patient also has 4 sons; Shorty (recently moved to [place]), Abbe of [place], and Fermin and Jose, both of [place]. ? Living Arrangements: Patient, patient?s Briseyda and their son Jose, age 19. Patient has a one-story home with a basement. There are 3 total stairs leading in/out of the house (no handrail) and 11 steps leading to basement, (handrail in place) all of which patient stated he is normally able to navigate without difficulty. Patient denied any environmental barriers. Transportation: Patient denied any transportation barriers. DME: Pulse ox and BP cuff. HHC: Denied any history of. SNF/Rehab: Denied any history of. Community Resources: Restorationist and family. Behavioral Health History: Depression and anxiety. Patient stated he is currently on medication to treat his depression which patient stated is working. Patient has a history of an inpatient psychiatric placement at [facility] ?2-3 years ago?. Patient denied any previous suicide attempt(s). Patient goals: When medically ready, patient wishes to discharge home, and denies a need for home health care at this time. Patient denies any further needs or concerns at this time. Disposition Plan: admission to acute; RN CM/SW to follow for discharge planning needs that may arise. Herminia Robles, WATCH TECHNICIAN, SAFETY AND OCCUPATIONAL HEALTH MANAGER
[2024-10-07] MEDS: Acetaminophen 325 MG Tablet 650 MG PO (19:52)
[2024-10-07] MEDS: 0.9% Normal Saline (1000mL) 1,000 ML 75 ML IV (19:53)
[2024-10-07] MEDS: 0.9% Saline Lock 10 ML Syringe IV (19:55)
[2024-10-08] MEDS: guaiFENesin 10 ML UDC (200MG/10ML) PO (00:12)
[2024-10-08 03:22] VITALS: BMI 23.7
[2024-10-08 04:22] VITALS: BP 103/76; PULSE 106; RESP 18; TEMP 36.8; O2SAT 96
[2024-10-08 07:00] VITALS: PULSE 115
[2024-10-08 07:59] LABS: Absolute Lymphocyte Count 1.38 X10^3/uL (0.83-4.51); Absolute Neutrophil Count 5.3 X10^3/uL (2.0-7.7); Basophil# 0.01 X10^3/uL; Basophil% 0.1 % (0-1); Eosinophil# 0.04 X10^3/uL; Eosinophils% 0.5 % (0-5); Hemoglobin 14.9 g/dL (13.0-16.5); Lymphocyte # 1.38 X10^3/ul (0.83-4.51); Lymphocyte % 18.9 % (19-41); Mean Corp Hgb Conc 34.7 g/dL (32-36); Mean Corpuscular Hgb 30.7 pg (27.0-32.0); Mean Corpuscular Volume 88.7 fL (80-94); Mean Platelet Vol. 10.1 fl (6.2-12.0); Monocyte# 0.51 X10^3/uL; NRBC Flagged by Analyzer 0 % (0-5); Neutrophil # 5.34 X10^3/uL (2.7-7.7); Neutrophil % 73.1 % (47-70); Platelet Count 146 K/mm3 (150-450); RBC Distribution Width CV 14.3 % (11.6-14.6); RBC Distribution Width SD 45.7 fl (35.1-43.9); Red Blood Count 4.85 M/mm3 (4.6-6.2); White Blood Count 7.3 K/mm3 (4.4-11.0)
[2024-10-08 08:19] VITALS: BP 108/77; PULSE 106; RESP 14; TEMP 36.7; O2SAT 95
[2024-10-08 08:25] VITALS: BP 108/77; BP 108/78; BP 97/82; PULSE 105; PULSE 110; PULSE 112
[2024-10-08 09:13] LABS: Anion Gap 12 (5-15); BUN 8 mg/dL (4-19); BUN/Creat Ratio 10.5 RATIO (10-20); Calcium,Total 8.7 mg/dL (7.6-11.0); Carbon Dioxide 21.8 mmol/L (21.0-32.0); Chloride 103 mmol/L (98-108); EST Glomerular Filtration Rate 106 (>60); Estimated Creatinine Clearance 117.21 ml/min (50-250); Glucose 103 mg/dL (70-99); Potassium 3.8 mmol/L (3.3-5.1); Sodium Level 137 mmol/L (133-145)
[2024-10-08] MEDS: 0.9% Normal Saline (1000mL) 1,000 ML 125 ML IV (09:45)
[2024-10-08] MEDS: Acetaminophen 325 MG Tablet 650 MG PO (11:53)
--- NOTE | 2024-10-08 12:22 | PN_ITS ---
Subjective Subjective Patient seen and examined. He complaiend of some dizziness, but had no other complaints. He denied any cough, chest pain, palpitaitons, dizziness, nausea, vomiting or any other symptoms. Review of systems is otherwise negative. Orthostatics were positive this morning. Objective Data Objective Data Vital Signs: Vital Signs Temp Pulse Resp BP Pulse Ox O2 Del Method 98.0 F 105 H 14 108/77 95 Room Air 10/08/24 08:19 10/08/24 08:25 10/08/24 08:19 10/08/24 08:25 10/08/24 08:19 10/08/24 09:00 Oxygen Delivery Method Room Air Weight: 175 lb 0.752 oz Body Mass Index (BMI) 23.7 Intake & Output: Intake and Output for Last 24 Hours 10/06/24 10/07/24 10/08/24 23:59 23:59 23:59 Intake Total 100 / 100 1600 / 1600 Balance 100 / 100 1600 / 1600 Lab / Micro Data 10/08/24 06:41 10/08/24 06:41 Labs: Laboratory Results - last 24 hr 10/07/24 12:45: WBC 6.1, RBC 4.88, Hgb 15.2, Hct 43.4, MCV 88.9, MCH 31.1, MCHC 35.0, RDW Std Deviation 45.7 H, RDW Coeff of Dusty 14.0, Plt Count 160, MPV 9.9, Immature Gran % (Auto) 0.500, Neut % (Auto) 68.8, Lymph % (Auto) 19.6, [place] % (Auto) 8.3, Eos % (Auto) 2.3, Baso % (Auto) 0.5, Absolute Neuts (auto) 4.2, Absolute Lymphs (auto) 1.20, Nucleated RBC % 0, Sodium 135, Potassium 3.8, Chloride 100, Carbon Dioxide 23.7, Anion Gap 12, BUN 10, Creatinine 0.80, Estim Creat Clear Calc 117.21, Est GFR (MDRD) Non-Af 106, BUN/Creatinine Ratio 12.5, G lucose 123 H, Calcium 9.0, Total Bilirubin 0.53, AST 26, ALT 21, Alkaline Phosphatase 48, Troponin T High Sens 10 D, Total Protein 7.0, Albumin 4.1, Globulin 2.9, Albumin/Globulin Ratio 1.4 10/08/24 06:41: WBC 7.3, RBC 4.85, Hgb 14.9, Hct 43.0, MCV 88.7, MCH 30.7, MCHC 34.7, RDW Std Deviation 45.7 H, RDW Coeff of Dusty 14.3, Plt Count 146 L, MPV 10.1, Immature Gran % (Auto) 0.400, Neut % (Auto) 73.1 H, Lymph % (Auto) 18.9 L, [place] % (Auto) 7.0, Eos % (Auto) 0.5, Baso % (Auto) 0.1, Absolute Neuts (auto) 5.3, Absolute Lymphs (auto) 1.38, Nucleated RBC % 0, Sodium 137, Potassium 3.8, Chloride 103, Carbon Dioxide 21.8, Anion Gap 12, BUN 8, Creatinine 0.80, Estim Creat Clear Calc 117.21, Est GFR (MDRD) Non-Af 106, BUN/Creatinine Ratio 10.5, G lucose 103 H, Calcium 8.7 Radiography Diagnostic Testing: Radiology Impression Chest X-Ray 10/07/24 14:06 IMPRESSION: Stable mild cardiomegaly. No acute findings. Reading Location: [facility] Rhythm Strip Rhythm Strip: Sinus Rhythm Rate: 86 Ectopy: None Physical Exam Const alert, oriented x3, no apparent distress and well nourished General Appearance: cooperative HEENT normocephalic, head/scalp atraumatic, moist oral mucous membranes and oropharynx normal Eyes PERRL and EOMs intact bilaterally Neck no lymphadenopathy and supple Lymph Lymphatic: no lymphadenopathy noted and no lymphedema noted Resp Resp Narrative: diminished breath sounds bibasally, no wheezes or crackles. On room air. Cardio regular rate, regular rhythm, S1 normal heart sound, S2 normal heart sound and no murmurs GI normal to inspection, nondistended, normoactive bowel sounds, soft to palpation, non-tender and non-distended Extremity normal capillary refill, no clubbing, cyanosis or edema and no calf tenderness General Extremity: no tenderness to palpation of joints or extremities Skin General Skin Exam: no breakdown Neuro CN's II-XII intact bilaterally, no focal motor deficits and no sensory deficits noted Motor Exam: strength 5/5 throughout and general weakness Psych thought process normal, cooperative and affect normal Appearance: appropriate Assessment & Plan Assessment/Plan (1) Syncope: (2) Acute on chronic congestive heart failure: QUALIFIERS: Heart failure type: combined systolic and diastolic Q ualified Code(s): I50.43 - Acute on chronic combined systolic (congestive) and diastolic (congestive) heart failure PLAN: Plan #Syncope * possibly due to orthostatic hypotension * Patient's blood pressure is running on the lower side of normal this morning with the systolic being in the 180s. He says at home his blood pressure was running around the 80s over 60s. * orthostatics were positive this morning. * BEing hydrated with IVF. However, in light of patient's known EF of 25%, will dc IVF * start on midodrine * BP meds on hold * repeat 2D echo ordered * fall precautions\ * Carvedilol and Lasix on hold. Spironolactone was on hold. * \#History of heart failure with reduced ejection fraction * Has known EF of 25%. * Lasix and spironolactone on hold due to hypotension. #History of schizophrenia: On lurasidone DVT prophylaxis: on lovenox Disposition: * Patient demanding transfer to [facility] because that is where his brother goes. * Patient counseled that there is no active indication for transfer now. * However he is insistent on being transferred. * Transfer initiated to [facility]; I spoke to the transfer line and the internal mediciine quarterback. Transfer declined as per [facility] doctor, there is no medical indication for transfer. Charges/Coding Visit Charges Inpatient E&M: 93849 Subs Hosp L2
--- NOTE | 2024-10-08 13:20 | NURSING ---
this nurse into patients room to update patient that Dr. Jenkins will be around to talk with him soon, pt requesting update on [facility] transfer this nurse informed pt that the doctor put in a request for transfer but that [facility] declined the transfer. Pt then Requested that everything be removed and that he wanted to leave. This nurse informed pt that the doctor had not discharged him so if he would like to leave it would be Against Medical Advice Pt states that he would like to leave. AMA paperwork Printed. Called Dr. Jenkins to notify her that Pt is requesting to leave AMA Dr. Jenkins would like to see the patient before he leaves and that she should be here in the next 10-15 minutes.
[2024-10-08 13:46] VITALS: BP 119/81; PULSE 117; RESP 14; TEMP 37.1; O2SAT 97
--- NOTE | 2024-10-08 14:17 | CHAPLAIN ---
Type of Pastoral Visit _x__ Initial Visit ___ Follow-up Visit ___ On-call Visit ___ General Patient Visit ___ Spiritual Assessment ___ Family Conference ___ Bereavement ___ Rapid Response ___ Code Blue ___ Other (describe below) Pastoral Care Referral From _x__ Patient ___ Family ___ Nurse ___ Physician ___ Proof Technician Helper ___ Project Coach ___ Other (describe below) Sacrament/Intervention _x__ Active listening ___ Anointing ___ Christianity ___ Bereavement ___ Communion ___ Audelia exploration ___ ___ Life review ___ Prayer ___ Reconciliation ___ Sacrament of Sick ___ Supportive presence ___ Wedding ___ Other (describe below) Pastoral Comments upon entering the room the patient was having a discussion with the nurse about wanting to be transferred to a [facility]; nurse left the room to consult with the doctor and have more conversation with more answers later; pt tells this manager inventory management that he wants to go to [facility] but they say I can't be transferred and that I have to sign out AMA, that's bull; asked why he wants to be transferred the patient responds because my brothers have gone there and they might have more higher technical things there; pt says that his doctor changed his medications but I'm still getting light headed so I want to know why; this manager inventory management listened to the concerns of the patient and said that he had a right to ask these questions but to also believe what the medical team here is telling him because they are not lying to him; this manager inventory management asked how he can be supportive and how he can help the patient; pt said that he didn't know what he would want or what this manager inventory management could do for him; pt then took his phone and made a phone call; this manager inventory management ended the visit with an offer of future support as desired
--- NOTE | 2024-10-08 14:25 | PCM.DC.SUM ---
Providers Date of Admission: 10/07/24 Date of Discharge: 10/08/24 Primary Care Physician: Christine Trujillo, ABRIL-C Reason For Visit: SYNCOPE Diagnosis Discharge Diagnosis (1) Syncope: Status: Acute Code(s): R55 - Syncope and collapse (2) Acute on chronic congestive heart failure: Status: Acute Code(s): I50.9 - Heart failure, unspecified Qualifiers: Heart failure type: combined systolic and diastolic Qualified Code(s): I50.43 - Acute on chronic combined systolic (congestive) and diastolic (congestive) heart failure Plan #Syncope possibly due to orthostatic hypotension Patient's blood pressure is running on the lower side of normal this morning with the systolic being in the 180s. He says at home his blood pressure was running around the 80s over 60s. orthostatics were positive this morning. BEing hydrated with IVF. However, in light of patient's known EF of 25%, will dc IVF start on midodrine BP meds on hold repeat 2D echo ordered fall precautions\ Carvedilol and Lasix on hold. Spironolactone was on hold. #History of heart failure with reduced ejection fraction Has known EF of 25%. Lasix and spironolactone on hold due to hypotension. #History of schizophrenia: On lurasidone DVT prophylaxis: on lovenox Disposition: Patient demanding transfer to [facility] because that is where his brother goes. Patient counseled that there is no active indication for transfer now. However he is insistent on being transferred. Transfer initiated to [facility]; I spoke to the transfer line and the internal mediciine quarterback. Transfer declined as per [facility] doctor, there is no medical indication for transfer. Medications at Discharge Home Medications lurasidone 60 mg tablet (Latuda) 60 mg PO QHS 07/07/23 furosemide 40 mg tablet (Lasix) 40 mg PO QAM 09/18/24 carvedilol 6.25 mg tablet (Coreg) 12.5 mg (2 x 6.25 mg) PO BID #180 tabs 09/27/24 spironolactone 25 mg tablet 25 mg PO QHS 10/07/24 Hospital Course Operations None Procedures None Summary of Care Provided Minutes Spent on Discharge: 55 Hospital Course: Patient is a 53-year-old male with a past medical history as outlined including heart failure with reduced ejection fraction with known EF of 25% from 2D echo from 09/05/2024. He had had a head cold for a couple of days prior to admission and has been eating and drinking well. On the day of admission he got up to go to the bathroom and felt dizzy. He passed urine and when he was coming out of the bathroom he felt lightheaded and passed out. He sustained an abrasion on his nose. Blood work was unremarkable and initial orthostatics were negative but subsequently orthostatics were positive. EKG showed no acute ST changes and chest x-ray showed no acute cardiopulmonary pathology. He was admitted and managed for syncope likely due to dehydration and hypotension as well as orthostatic hypotension. He was gently hydrated with IV fluids. Blood pressure was still running low. He was therefore started on midodrine. In the afternoon on 10/08/2024 patient insisted on being transferred to [facility]. He said that is where his brothers went so he wanted to go there too. Patient was counseled extensively that there was no medical indication for him to be transferred but he insisted on the transfer. This hospitalist did initiate transfer to [facility] and spoke to the medicine quarterback at [facility]. Transfer was however declined as there was no medical indication for transfer. This hospitalist went and spoke to patient about [facility] refusing transfer. Patient decided to sign out AGAINST MEDICAL ADVICE as he said he wanted to go to [facility] and was planning on driving straight to the ER at [facility]. Despite being counseled extensively about the need to stay to make sure that his symptoms improved, patient was adamant about signing out AMA. Patient therefore signed out AGAINST MEDICAL ADVICE on 10/08/2024. Patient seen and examined prior to discharge. He had no active complaints. As stated above, despite extensive counseling, he still insisted on signing out AGAINST MEDICAL ADVICE. Physical Exam Const alert, oriented x3, no apparent distress and well nourished General Appearance: cooperative and comfortable Orientation / Consciousness: awake Exam Limitations: no limitations HEENT normocephalic, head/scalp atraumatic, hearing grossly normal bilaterally, moist oral mucous membranes and oropharynx normal Mouth: oral and palatal mucosa normal Eyes PERRL and EOMs intact bilaterally Neck no lymphadenopathy and supple Lymph Lymphatic: no lymphadenopathy noted and no lymphedema noted Resp Resp Narrative: diminished breath sounds bibasally, no wheezes or crackles. On room air. Cardio regular rate, regular rhythm, S1 normal heart sound, S2 normal heart sound and no murmurs GI normal to inspection, nondistended, normoactive bowel sounds, soft to palpation, non-tender and non-distended Extremity normal to inspection, full ROM, normal capillary refill, no clubbing, cyanosis or edema and no calf tenderness General Extremity: no tenderness to palpation of joints or extremities Skin no rashes or lesions noted General Skin Exam: no breakdown Neuro oriented x3, CN's II-XII intact bilaterally, moves all extremities, no focal motor deficits and no sensory deficits noted Sensorium / Orientation: awake and alert Motor Exam: strength 5/5 throughout and general weakness Psych thought process normal, cooperative and affect normal Appearance: appropriate Weight / BMI Weight Weight: 175 lb 0.752 oz Body Mass Index (BMI) 23.7 ABG / Lab / Microbiology Data 10/08/24 06:41 10/08/24 06:41 Laboratory: Laboratory Results - last 24 hr 10/08/24 06:41: WBC 7.3, RBC 4.85, Hgb 14.9, Hct 43.0, MCV 88.7, MCH 30.7, MCHC 34.7, RDW Std Deviation 45.7 H, RDW Coeff of Dusty 14.3, Plt Count 146 L, MPV 10.1, Immature Gran % (Auto) 0.400, Neut % (Auto) 73.1 H, Lymph % (Auto) 18.9 L, Mcdonough % (Auto) 7.0, Eos % (Auto) 0.5, Baso % (Auto) 0.1, Absolute Neuts (auto) 5.3, Absolute Lymphs (auto) 1.38, Nucleated RBC % 0, Sodium 137, Potassium 3.8, Chloride 103, Carbon Dioxide 21.8, Anion Gap 12, BUN 8, Creatinine 0.80, Estim Creat Clear Calc 117.21, Est GFR (MDRD) Non-Af 106, BUN/Creatinine Ratio 10.5, Glucose 103 H, Calcium 8.7 Radiography Diagnostic Testing: Radiology Impression Chest X-Ray 10/07/24 14:06 IMPRESSION: Stable mild cardiomegaly. No acute findings. Reading Location: [facility] D/C Instructions Discharge Diet: Low fat / Low cholesterol Discharge Activity: Return to Normal Activity Weight Bearing Status: Weight bearing as tolerated Call your doctor if you observe: Fever of 101 or Higher, Shortness of breath, Dizziness, Swelling in the ankles and Chest pain DC O2, CPAP, BIPAP Needs Home O2 Discharge instructions: No DC home with Oxygen: No Meaningful Use Info Meaningful Use Meaningful Use Diagnoses (Choose all that apply): None applicable Ischemic Stroke Statin Dosing Therapy Reference: STATIN DOSE THERAPY REFERENCE: * Patients > 75 years receive moderate or high dose statin therapy. * Patients 75 years or YOUNGER should receive HIGH intensity statin dose unless contraindicated. You will be required to document reason for non-treatment if statin daily dose does not meet guidelines. HIGH DOSE STATIN THERAPY DAILY Atorvastatin > than or = to 40 mg Rosuvastatin > than or = to 20 mg Amlodipine + Atorvastatin > than or = to 2.5/40 mg Ezetimibe + Simvastatin 10/80 mg Simvastatin 80mg Discharge Plan Admission Admit Date/Time: 10/07/24 18:16 Primary Reason for Your Visit: syncope Attending Provider: Michelle Jenkins Primary Care Provider: Christine Trujillo NP Consulting Providers: Dyllan Mackey Discharge Orders/Prescriptions Prescriptions: No Action lurasidone [Latuda] 60 mg tablet 60 mg PO QHS Rx Instructions: must administer with food (at least 350 calories) furosemide [Lasix] 40 mg tablet 40 mg PO QAM spironolactone 25 mg tablet 25 mg PO QHS carvedilol [Coreg] 6.25 mg tablet 12.5 mg PO BID Qty: 180 3RF Rx Instructions: must administer with a meal/food Referrals / Follow Up: Christine Trujillo NP, [employer] [Primary Care Provider] - Within 1 Week Disposition Disposition (needs filled in before D/C Order can be placed): Against Medical Advice Charges/Coding Visit Charges Inpatient E&M: 14543 Disch Hosp >30min
== END 2024-10-08 15:10 | disposition left against medical advice (07) ==
LOC: ED 16:45 → PCU 18:43
PROVIDERS: Admitting Provider Family Medicine; Emergency Provider Emergency Medicine; PCP Nurse Practitioner Family; Visit Provider Student in an Organized Health Care Education/Training Program
DX: R55 Syncope and collapse (principal); F20.9 Schizophrenia, unspecified; I50.43 Acute on chronic combined systolic (congestive) and diastolic (congestive) heart failure; S00.31XA Abrasion of nose, initial encounter; R29.700 NIHSS score 0; Z82.49 Family history of ischemic heart disease and other diseases of the circulatory system; F17.220 Nicotine dependence, chewing tobacco, uncomplicated; W19.XXXA Unspecified fall, initial encounter; I51.7 Cardiomegaly
CPT/HCPCS: 71046; 80048; 80053; 84484; 85025; 93005; 96360; 96361; 99221; 99285; A4216; G0378